=== PATIENT | male | born 1935 | race Caucasian/White ===

== ENCOUNTER 2020-12-12 00:59 | Day surgery (SDC) | payer MEDICARE, SELFPAY ==
[2020-11-26 12:46] VITALS: BMI 23.3
--- NOTE | 2020-12-12 07:19 | WPDANESEPPF ---
Anes - Initial Pre Proc Eval Procedure: Operation Date: 12/12/20 08:45 Proposed Procedures p Screening Colonoscopy - Kasi Schaefer MD Date/Time: 12/12/20 07:19 Surgeon: Kasi Schaefer MD Pre Op Diagnosis: hx of colon polyps Patient Data Age: 85 Gender: M Height: 1.83 m Weight: 78 kg Allergies Allergy/AdvReac Type Severity Reaction Status Date / Time azithromycin Allergy Mild Diarrhea Verified 11/14/20 08:44 Home Medications Medication Instructions Recorded Confirmed Type ramipril 10 mg capsule 10 mg PO DAILY #90 cap 06/20/20 12/12/20 Rx tamsulosin 0.4 mg capsule 0.4 mg PO DAILY #90 cap 08/27/20 12/12/20 Rx diltiazem HCl 240 mg 240 mg PO DAILY #90 cap 12/03/20 12/12/20 Rx capsule,extended release 24 hr Patient hx anesthesia problems: none Family hx anesthesia problems: none PMFSH Past Medical History Medical History (Updated 12/12/20 @ 07:58 by Kasi Schaefer MD) Esophageal reflux disease Essential (primary) hypertension Pure hypercholesterolemia Family History Family History Sibling Patient's sister is in good health Other Family history of gastrointestinal disorder Social History Social History Smoking status: Never smoker Second hand tobacco smoke exposure: No Alcohol intake: never Substance use: never Living arrangements: with family Spiritual care concerns: No Anes - Eval Final PreProcedure Day of Procedure 12/12/20 07:19 Patient weight: normal Heart: regular rate and rhythm Lungs: clear to auscultation and normal air movement Airway: Mallampati scale class II Neurological: alert and oriented Last oral intake: >/= 8 hours ASA classification: II Emergent: no Anesthetic plan: proceed Anesthesia type and monitoring: general GIVS Informed Consent: The patient's anesthetic plan and its attendant risks and benefits were discussed with the patient/family/POA. Questions were solicited and answers provided to the satisfaction of the patient/family/POA.
[2020-12-12 07:36] VITALS: BP 160/89; PULSE 91; RESP 18; TEMP 36.7; O2SAT 99; BMI 22.4
--- NOTE | 2020-12-12 07:56 | P.CONGI_ITS ---
Assessment and Plan Assessment and plan (1) History of colon polyps: Code(s): Z86.010 - Personal history of colonic polyps Status: Acute Assessment and Plan: Patient has a history of colon polyps most recently 2012. Plan is for surveillance colonoscopy at this time. High-fiber diet advised. GI Consult Note Consult date/time: 12/12/20 07:56 HPI: Reddy Ordoñez Sr. is a 85 year old male Presents for follow-up surveillance colonoscopy. Patient has a history of colon polyps in the past. Most recent colonoscopy 2012. Patient states that his current weight appetite bowel movements are normal. Patient denies abdominal pain. He has had no blood in his stools. Family history is noncontributory. Patient presents today for a colonoscopy. Review of Systems Review of Systems: All systems reviewed & are unremarkable except as noted in HPI and below PMFSH Past Medical History Medical History (Updated 12/12/20 @ 07:58 by Kasi Schaefer MD) Esophageal reflux disease Essential (primary) hypertension Pure hypercholesterolemia Family History Family History Sibling Patient's sister is in good health Other Family history of gastrointestinal disorder Social History Social History Smoking status: Never smoker Second hand tobacco smoke exposure: No Alcohol intake: never Substance use: never Living arrangements: with family Spiritual care concerns: No Meds Home Medications and Allergies Home Medications Medication Instructions Recorded Confirmed Type ramipril 10 mg capsule 10 mg PO DAILY #90 cap 06/20/20 12/12/20 Rx tamsulosin 0.4 mg capsule 0.4 mg PO DAILY #90 cap 08/27/20 12/12/20 Rx diltiazem HCl 240 mg 240 mg PO DAILY #90 cap 12/03/20 12/12/20 Rx capsule,extended release 24 hr Allergies Allergy/AdvReac Type Severity Reaction Status Date / Time azithromycin Allergy Mild Diarrhea Verified 11/14/20 08:44 Vital Signs Vital Signs - 24 hr 12/12/20 07:36 Temperature 98.0 F Pulse Rate 91 Respiratory Rate 18 Blood Pressure 160/89 H Pulse Oximetry 99 Exam Narrative: Exam Narrative: Physical exam reveals patient to be alert. Vital signs stable. HEENT exam is unremarkable. Patient is anicteric. Lungs are clear to auscultation and percussion. Heart is without murmur or extra sounds. Abdominal exam bowel sounds are present soft nontender with no organomegaly. Di gital external rectal exam is normal.
[2020-12-12] MEDS: LACTATED RINGERS 1,000 ML 150 ML IV CONT (08:02)
[2020-12-12 08:56] VITALS: BP 121/49; PULSE 90; RESP 18; O2SAT 98
[2020-12-12 09:06] VITALS: BP 122/71; PULSE 88; RESP 19; O2SAT 97
[2020-12-12 09:16] VITALS: BP 135/80; PULSE 80; RESP 13; O2SAT 97
== END 2020-12-12 09:27 | disposition home or self-care (01) ==
PROVIDERS: PCP Internal Medicine; Visit Provider Internal Medicine Gastroenterology
PROC: 0DJD8ZZ Inspection of Lower Intestinal Tract, Via Natural or Artificial Opening Endoscopic (ICD-10-PCS; CPT 45378; principal; 2020-12-12 08:45)
DX: Z12.11 Encounter for screening for malignant neoplasm of colon (principal); D12.5 Benign neoplasm of sigmoid colon; D12.2 Benign neoplasm of ascending colon; K64.8 Other hemorrhoids; K57.30 Diverticulosis of large intestine without perforation or abscess without bleeding; I10 Essential (primary) hypertension; E78.00 Pure hypercholesterolemia, unspecified; K21.9 Gastro-esophageal reflux disease without esophagitis
CPT/HCPCS: 45385; 88305; J2704; J7120

== ENCOUNTER 2021-02-03 10:04 | Emergency (ER) | payer MEDICARE, SELFPAY ==
--- NOTE | ~2021-02-03 | XR_ITS ---
EXAMINATION: XR ankle RT min 3V DATE: 02/03/2021 10:31 INDICATION: Lateral right ankle pain post trauma 2 days prior TECHNIQUE: Anteroposterior, oblique, mortise, and lateral views of the right ankle were obtained. COMPARISON: None. FINDINGS: There is a nondisplaced oblique fracture through the distal fibula with a fracture plane exiting medi ally at the level of the tibiotalar joint consistent with Mensah type B injury pattern. No other fract ure identified. Specifically the medial and posterior malleoli as well as the talar dome are intact. Ankle mortise remains congruent. Soft tissue swelling overlying the lateral malleolus. Additional m ild soft tissue swelling at the medial side of the hindfoot. Moderate-sized right ankle joint effusio n. IMPRESSION: 1. Nondisplaced oblique fracture of the distal left fibula. 2. Moderate-sized right ankle joint effusion. Reviewed, dictated and finalized at location A.
[2021-02-03 10:17] VITALS: BP 154/68; PULSE 84; RESP 18; TEMP 37.1; O2SAT 99
--- NOTE | 2021-02-03 10:45 | ED.LOWEXIN ---
HPI - Extremity Injury (Lower) General Chief Complaint: Extremity Injury, Lower Stated Complaint: Rt ankle pain History of Present Illness HPI Narrative: This is a 85 year old male who two days ago got his left ankle caught in between to pieces of metal and fell backwards patient states that he has a superfical abrasion and his foot is still swollen. Patient informs me that it hurts when he ambulates on the leg but he is still able with a lot of pain Related Data Allergies Allergy/AdvReac Type Severity Reaction Status Date / Time azithromycin Allergy Mild Diarrhea Verified 02/03/21 10:22 Review of Systems Review of Systems: CONSTITUTIONAL: Denies fever, chills, or sweats. EYES: Denies visual changes, redness, or discharge. ENT: Denies rhinorrhea, congestion, sore throat, or otalgia. CARDIOVASCULAR:Denies chest pain, palpitations, or edema. RESPIRATORY: Denies cough or dyspnea. GASTROINTESTINAL: Denies abdominal pain, nausea, vomiting, or diarrhea. GENITOURINARY: Denies dysuria or hematuria. SKIN:[Denies rash or itching. MUSCULOSKELETAL:Denies back pain, joint pain, or myalgia. left foot and ankle pain and swelling NEUROLOGIC: Denies headache, numbness, or weakness. PSYCHIATRIC:Denies anxiety or depression [facility] Past Medical History Medical History (Updated 02/03/21 @ 11:20 by Israel Becerra NP) Esophageal reflux disease Essential (primary) hypertension Pure hypercholesterolemia Family History Family History Sibling Patient's sister is in good health Other Family history of gastrointestinal disorder Social History Social History Smoking status: Never smoker Second hand tobacco smoke exposure: No Alcohol intake: never Substance use: never Spiritual care concerns: No Comments At time as signature, I have reviewed and agree with nursing past medical, social, surgical and family history. Please see nursing chart for further information. There is no relevant family history pertinent to the presenting complaint. Exam Narrative: GENERAL:Well-appearing, well-nourished, and in no acute distress. HEAD:Normocephalic, atraumatic. EYES: PERRLA and EOMI. ENT: Nares clear, no rhinorrhea or epistaxis. Mucous membranes moist. NECK: Supple. CHEST: Clear to auscultation. No respiratory distress. HEART: Regular rate and rhythm. Normal peripheral pulses. ABDOMEN: Soft, nontender, nondistended, normal active bowel sounds. EXTREMITIES: decreased range of motion due to pain on the left leg . 2+ edema left foot with some bruising noted painful to palpation. Left out side of leg has a superficial laceration with serosanguineous drainage. SKIN: Warm, dry, no rash. NEURO: No focal deficits. Alert and oriented x3. Course [employer] Physician Supervision FINDINGS: There is a nondisplaced oblique fracture through the distal fibula with a fracture plane exiting medially at the level of the tibiotalar joint consistent with Mensah type B injury pattern. No other fracture identified. Specifically the medial and posterior malleoli as well as the talar dome are intact. Ankle mortise remains congruent. Soft tissue swelling overlying the lateral malleolus. Additional mild soft tissue swelling at the medial side of the hindfoot. Moderate-sized right ankle joint effusion. IMPRESSION: 1. Nondisplaced oblique fracture of the distal left fibula. 2. Moderate-sized right ankle joint effusion. Reviewed, dictated and finalized at location A. Dictated By: Kelby Man MD 02/03/21 1051 Vital Signs Vital signs: Vital Signs Temperature 98.8 F 02/03/21 10:17 Pulse Rate 84 02/03/21 10:17 Respiratory Rate 18 02/03/21 10:17 Blood Pressure 154/68 H 02/03/21 10:17 Pulse Oximetry 99
== END 2021-02-03 11:50 | disposition home or self-care (01) ==
PROVIDERS: Emergency Provider Nurse Practitioner Family; PCP Internal Medicine
DX: M25.461 Effusion, right knee (principal); S82.434A Nondisplaced oblique fracture of shaft of right fibula, initial encounter for closed fracture; W18.09XA Striking against other object with subsequent fall, initial encounter; I10 Essential (primary) hypertension
CPT/HCPCS: 29515; 73610; 99213; 99214; G0463

== ENCOUNTER 2021-02-12 12:51 | Outpatient (RCR) | payer MEDICARE, SELFPAY ==
[2021-02-12 13:00] VITALS: BMI 23.7
== END 2021-04-03 13:47 | disposition home or self-care (01) ==
LOC: ANHWOC 12:51
PROVIDERS: PCP Internal Medicine; Visit Provider Orthopaedic Surgery
DX: S90.511D Abrasion, right ankle, subsequent encounter (principal); S82.64XD Nondisplaced fracture of lateral malleolus of right fibula, subsequent encounter for closed fracture with routine healing
CPT/HCPCS: 99212; G0463

== ENCOUNTER 2021-03-04 10:04 | Outpatient (CLI) | payer MEDICARE, SELFPAY ==
--- NOTE | ~2021-03-04 | XR_ITS ---
XR ankle RT min 3V DATE: 03/04/2021 10:25 INDICATION: Nondisplaced fracture of lateral malleolus TECHNIQUE: 4 views COMPARISON: 02/03/2021 right ankle FINDINGS: There is a linear oblique virtually nondisplaced fracture of the distal fibular diametaphys is. The fracture line is less lucent compared to 02/03/2021 consistent with some interval healing. Medial malleolus and posterior malleolus appear intact. Ankle mortise is preserved. IMPRESSION: Healing nondisplaced distal fibular diametaphyseal fracture Reviewed, dictated and finalized at location A.
== END 2021-03-04 10:05 | disposition home or self-care (01) ==
PROVIDERS: PCP Internal Medicine; Visit Provider Physician Assistant Surgical
DX: S82.64XD Nondisplaced fracture of lateral malleolus of right fibula, subsequent encounter for closed fracture with routine healing (principal); X58.XXXD Exposure to other specified factors, subsequent encounter
CPT/HCPCS: 73610

== ENCOUNTER 2021-12-11 10:13 | Emergency (ER) | payer MEDICARE, SELFPAY ==
--- NOTE | 2021-12-11 10:19 | ED.URI ---
HPI - URI/Sore Throat General Chief Complaint: Upper Respiratory Infection Stated Complaint: cold symptoms Time Seen by Provider: 12/11/21 10:40 Source: patient and RN notes reviewed Mode of arrival: ambulatory Limitations: no limitations History of Present Illness HPI Narrative: 86-year-old male presents with concern for 4-day history of cough, nasal congestion, rhinorrhea. Reports symptoms were worse on Thursday and Thursday. He reports hot and cold flashes, dry cough, rhinorrhea, headache. Reports he has had COVID-vaccine +2 boosters. He denies any shortness of breath, fever. He reports he is been taking Tylenol MD elicited complaint: cough and rhinorrhea Related Data Allergies Allergy/AdvReac Type Severity Reaction Status Date / Time azithromycin Allergy Mild Diarrhea Verified 12/11/21 10:17 Review of Systems Review of Systems: CONSTITUTIONAL: Reports malaise, chills, sweats. Denies fever. EYES: Denies visual changes, redness, or discharge. ENT: Reports rhinorrhea, congestion. Denies sinus pain, otalgia and sore throat. CARDIOVASCULAR: Denies chest pain, palpitations, or edema. RESPIRATORY: Reports cough. Denies dyspnea. GASTROINTESTINAL: Denies abdominal pain, nausea, vomiting, diarrhea SKIN: Denies rash or itching. MUSCULOSKELETAL: Denies myalgia. NEUROLOGIC: Denies headache. All systems reviewed & are unremarkable except as noted in HPI and below PMFSH Past Medical History Medical History Esophageal reflux disease Essential (primary) hypertension Pure hypercholesterolemia Surgical History Surgical History Hx of cholecystectomy Previous back surgery Family History Family History Sibling Patient's sister is in good health Other Family history of gastrointestinal disorder Social History Social History Smoking status: Never smoker Second hand tobacco smoke exposure: No Alcohol intake: never Substance use: never Spiritual care concerns: No Comments At time of signature, agree with nursing past medical, surgical, social and family history. There is no relevant family history pertinent to the presenting complaint Exam Narrative: GENERAL: Nontoxic appearing and in no acute distress. HEAD: Normocephalic EYES: PERRLA, conjunctivae clear ENT: Nares clear, clear discharge. Mucous membranes moist. TM pearly mays with sharp light reflex bilaterally; no tragal tenderness. Oropharynx not erythematous without lesions. Tonsils not enlarged and without exudate, no drooling, no hoarseness, no trismus, uvula midline. NECK: Supple. No lymphadenopathy CHEST: Clear to auscultation, breath sounds equal. No wheezing, rhonchi, rales, or stridor. No respiratory distress, speaks in full sentences. HEART: Regular rate and rhythm. No murmur heard. SKIN: Warm, dry, no rash. NEURO: Alert and oriented x3. PSYCH: Normal mood and affect Course Course Emergency Course: Patient is aware of diagnosis, understands and agrees to treatment plan. Anticipatory guidance given. Patient agrees to follow-up as directed and is aware of reasons to seek care at the emergency department. Portions of this record may have been created with voice recognition software Level of Care: Express Care Visit Vital Signs Vital signs: Vital Signs Temperature 99.5 F 12/11/21 10:26 Pulse Rate 101 H 12/11/21 10:26 Respiratory Rate 18 12/11/21 10:26 Blood Pressure 136/65 12/11/21 10:26 Pulse Oximetry 98 12/11/21 10:26 Oxygen Delivery Room Air 12/11/21 10:26 Temperature 99.5 F 12/11/21 10:26 Pulse Rate 101 H 12/11/21 10:26 Respiratory Rate 18 12/11/21 10:26 Blood Pressure 136/65 12/11/21 10:26 Pulse Oximetry 98 12/11/21 10:26 Oxygen Delivery Room Air 12/11/21 10:26 Reviewed. MDM - URI/S
[2021-12-11 10:26] VITALS: BP 136/65; PULSE 101; RESP 18; TEMP 37.5; O2SAT 98
== END 2021-12-11 10:58 | disposition home or self-care (01) ==
PROVIDERS: Emergency Provider Nurse Practitioner; PCP Internal Medicine
DX: U07.1 COVID-19 (principal); K21.9 Gastro-esophageal reflux disease without esophagitis; I10 Essential (primary) hypertension; E78.00 Pure hypercholesterolemia, unspecified
CPT/HCPCS: 87426; 87804; 99213; C9803; G0463

== ENCOUNTER 2021-12-18 11:33 | Outpatient (CLI) | payer MEDICARE, SELFPAY ==
--- NOTE | ~2021-12-18 | XR_ITS ---
XR chest 2V DATE: 12/18/2021 11:50 INDICATION: Cough TECHNIQUE: PA and lateral views COMPARISON: 01/11/2016 PA and lateral chest FINDINGS: Normal heart size. Mild aortic calcification and unfolding. No hilar or mediastinal enlarge ment. No pulmonary infiltrate or consolidation, pleural effusion or pulmonary vascular congestion or pneumo thorax. Postoperative change of the abdomen. Degenerative change of the thoracic spine. Osteopenia. IMPRESSION: No active cardiopulmonary disease Reviewed, dictated and finalized at location B.
== END 2021-12-18 11:34 | disposition home or self-care (01) ==
PROVIDERS: PCP Internal Medicine; Visit Provider Internal Medicine
DX: R05.9 Cough, unspecified (principal); U07.1 COVID-19
CPT/HCPCS: 71046

== ENCOUNTER 2022-10-17 13:09 | Outpatient (CLI) | payer MEDICARE, SELFPAY | END 2022-10-17 13:10 | disposition home or self-care (01) | PROVIDERS: PCP Internal Medicine; Visit Provider Internal Medicine | DX: J02.9 Acute pharyngitis, unspecified (principal) | CPT/HCPCS: 87070 ==

== ENCOUNTER 2023-02-16 08:00 | Outpatient (NON) | payer MEDICARE, SELFPAY | END 2023-02-16 08:01 | disposition home or self-care (01) | LOC: ANHLAB 02-20 12:47 | PROVIDERS: PCP Internal Medicine; Visit Provider Nurse Practitioner | DX: C44.219 Basal cell carcinoma of skin of left ear and external auricular canal (principal) | CPT/HCPCS: 88305 ==

== ENCOUNTER 2023-02-28 08:09 | Emergency (ER) | payer MEDICARE, SELFPAY ==
--- NOTE | 2023-02-28 08:17 | ED.SKABFB ---
HPI - Skin/Abscess/Foreign Bdy General Chief complaint: Allergic Reaction Stated complaint: Insect Bite Time Seen by Provider: 02/28/23 08:26 Source: patient and RN notes reviewed Mode of arrival: ambulatory Limitations: no limitations History of Present Illness HPI narrative: 87-year-old male presents with concern for ground hornet stings. Reports yesterday at 1:00 a.m. he was raking leaves when he got stung by several ground hornets. Reports a sting to the left face, left elbow and right hand. Reports are swollen, warm, tender. He denies swollen lips, swollen tongue, trouble breathing. Denies vomiting or diarrhea. Reports he put hydrocortisone cream on the areas. MD complaint: insect bite/sting Related Data Home Medications Medication Instructions Recorded Confirmed amitriptyline 10 mg tablet 10 mg PO DIRECTED 02/28/23 02/28/23 Allergies Allergy/AdvReac Type Severity Reaction Status Date / Time azithromycin Allergy Mild Diarrhea Verified 02/28/23 08:25 Review of Systems Review of Systems: CONSTITUTIONAL: Denies malaise, chills, sweats, or fever. EYES: Denies redness, or discharge. ENT: Denies rhinorrhea, congestion, swollen lips, swollen tongue CARDIOVASCULAR: Denies chest pain, palpitations, or edema. RESPIRATORY: Denies cough or dyspnea. GASTROINTESTINAL: Denies abdominal pain, nausea, vomiting SKIN: Reports insect stings to the right hand, left elbow, left face MUSCULOSKELETAL: Denies joint pain or myalgia. NEUROLOGIC: Denies headache. All systems reviewed & are unremarkable except as noted in HPI and below PMFSH Past Medical History Medical History Esophageal reflux disease Essential (primary) hypertension Pure hypercholesterolemia Surgical History Surgical History Hx of cholecystectomy Previous back surgery Family History Family History Sibling Patient's sister is in good health Other Family history of gastrointestinal disorder Social History Social History Smoking status: Never smoker Second hand tobacco smoke exposure: No Alcohol intake: never Substance use: never Lack of Transportation: No Lack of Food: Never True Current Housing: I Have Housing Concerned About Future Housing: No Difficulty Paying Gas/Electric Bills: No Difficulty Paying for Meds: No Currently Unemployed: No Education: High School Diploma/GED Difficulty w/ Childcare or Family Care: No Living arrangements: with family Spiritual care concerns: No Comments At time of signature, agree with nursing past medical, surgical, social and family history. There is no relevant family history pertinent to the presenting complaint Exam Narrative: GENERAL: Well-appearing, well-nourished, and in no acute distress. HEAD: Normocephalic, atraumatic. EYES: PERRLA, conjunctivae clear, and EOMI. ENT: Mucous membranes moist. Oropharynx without edema, erythema or lesions. NECK: Supple. No lymphadenopathy CHEST: Clear to auscultation. No respiratory distress. HEART: Regular rate and rhythm. SKIN: Warm, dry. Erythema, edema, warmth with mild induration noted to the left elbow extending into the left forearm, right dorsal hand. Mild erythema noted to the left cheek. NEURO: Alert and oriented x3. PSYCH: Normal mood and affect Course Course Emergency Course: Patient is aware of diagnosis, understands and agrees to treatment plan. Anticipatory guidance given. Patient agrees to follow-up as directed and is aware of reasons to seek care at the emergency department. Portions of this record may have been created with voice recognition software Level of Care: Express Care Visit Vital Signs Vital signs: Reviewed. MDM - Skin/Abscess/Foreign Bdy MDM Narrative Medical de
[2023-02-28 08:19] VITALS: BP 165/77; PULSE 87; RESP 16; TEMP 36.9; O2SAT 100
== END 2023-02-28 08:39 | disposition home or self-care (01) ==
PROVIDERS: Emergency Provider Nurse Practitioner; PCP Internal Medicine
DX: T63.451A Toxic effect of venom of hornets, accidental (unintentional), initial encounter (principal); I10 Essential (primary) hypertension; Z79.899 Other long term (current) drug therapy
CPT/HCPCS: 99213; G0463

== ENCOUNTER 2023-04-06 09:00 | Outpatient (NON) | payer MEDICARE, SELFPAY | END 2023-04-06 09:01 | disposition home or self-care (01) | LOC: ANHLAB 14:06 | PROVIDERS: PCP Internal Medicine; Visit Provider Nurse Practitioner | DX: C44.91 Basal cell carcinoma of skin, unspecified (principal) | CPT/HCPCS: 88305; 88331 ==

== ENCOUNTER 2023-10-06 08:45 | Outpatient (CLI) | payer MEDICARE, SELFPAY | END 2023-10-06 08:46 | disposition home or self-care (01) | LOC: ANHAUDIO 08:46 | PROVIDERS: PCP Internal Medicine; Visit Provider Otolaryngology | DX: H90.3 Sensorineural hearing loss, bilateral (principal) | CPT/HCPCS: 92557; 92567 ==

== ENCOUNTER 2023-12-20 16:56 | Emergency (ER) | payer MEDICARE, SELFPAY ==
--- NOTE | ~2023-12-20 | XR_ITS ---
EXAMINATION: XR chest 2V DATE: 12/20/2023 17:20 INDICATION: Cough TECHNIQUE: PA and lateral views of the chest were obtained. COMPARISON: Chest radiograph dated 12/18/2021 FINDINGS: Unchanged mild left apical pleural-parenchymal scarring. No other airspace opacities, pulmonary edema , pleural effusion or pneumothorax. The cardiomediastinal silhouette is normal. Chronic mild anterior wedging of a few mid thoracic vertebral bodies with severe spondylosis. Postoperative changes in the abdomen including likely ventral hernia repair. IMPRESSION: 1. No acute cardiopulmonary disease. Reviewed, dictated and finalized at location A.
[2023-12-20 17:03] VITALS: BP 152/65; PULSE 84; RESP 18; TEMP 37.2; O2SAT 99
--- NOTE | 2023-12-20 17:15 | ED.URI ---
HPI - URI/Sore Throat General Chief Complaint: Upper Respiratory Infection Stated Complaint: Chest and Head Congestion Time Seen by Provider: 12/20/23 16:57 Source: patient Mode of arrival: ambulatory Limitations: no limitations History of Present Illness HPI Narrative: 88-year-old male presents to [facility] with complaints of nonproductive cough, chest congestion, nasal congestion, body aches and sinus pressure for the past 10 days. Patient has been taking [id number] Tylenol with minimal relief. Patient reports intermittent shortness of breath but denies wheezing. Patient denies sick contacts. Patient denies recent travel. Patient is nonsmoker. MD elicited complaint: cough, rhinorrhea and nasal congestion Onset (ago): day(s) (10) Able to tolerate fluids by mouth: Yes Exacerbating factors: nothing Relieving factors: nothing Treatments prior to arrival: acetaminophen Related Data Allergies Allergy/AdvReac Type Severity Reaction Status Date / Time azithromycin AdvReac Mild Diarrhea Verified 12/20/23 16:59 Review of Systems Constitutional: Constitutional: Denies chills, Denies fatigue, Denies fever(s) and Denies weakness ENT: Denies vertigo, Denies dizziness, Denies epistaxis, Reports nasal congestion and Denies sore throat Cardiovascular: Cardiovascular: Denies chest pain Respiratory: Respiratory: Reports chest congestion, Reports cough, Reports dyspnea and Denies wheezing Gastrointestinal: Gastrointestinal: Denies diarrhea, Denies nausea and Denies vomiting Integumentary/Breasts: Skin/Breast: Denies erythema, Denies rash and Denies skin ulcer Neurologic: Denies dizziness, Denies syncope and Denies headache(s) [facility] Past Medical History Medical History Esophageal reflux disease Essential (primary) hypertension Pure hypercholesterolemia Surgical History Surgical History Hx of cholecystectomy Previous back surgery Family History Family History Sibling Patient's sister is in good health Other Family history of gastrointestinal disorder Social History Social History Smoking status: Never smoker Second hand tobacco smoke exposure: No Alcohol intake: never Substance use: never Lack of Transportation: No Lack of Food: Never True Current Housing: I Have Housing Concerned About Future Housing: No Difficulty Paying Gas/Electric Bills: No Difficulty Paying for Meds: No Currently Unemployed: No Education: High School Diploma/GED Difficulty w/ Childcare or Family Care: No Living arrangements: with family Spiritual care concerns: No Comments At time of signature, I agree with nursing past medical, surgical, social and family history. There is no relevant family history pertinent to the presenting complaint. Exam Const: General: healthy appearing and no acute distress Nutritional Appearance: well nourished Orientation/consciousness: patient oriented x3 Limitations: no limitations HENMT: Head: normal to inspection Ears: external ears normal and TM's normal bilaterally Face/Nose/Sinus: Normal external nose present Face and sinus: normal facial exam Mouth: Yes Normal oral and palatal mucosa present, Yes lip normal and Yes moist mucous membranes Throat: posterior oropharynx normal and uvula midline Other: Mild nasal congestion noted Eyes: Conjunctivae: conjunctivae normal Neck: Neck: normal visual inspection Resp: Effort & Inspection: normal respiratory effort, not labored, no retractions and not tachypneic Auscultation: no crackles, no rales, no rhonchi, no wheezes and diminished lung sounds on the left in the upper lung coughlin Cardio: Rate: regular rate Rhythm: regular rhythm Heart sounds: no murmurs Skin: General skin exam: normal color R
== END 2023-12-20 17:44 | disposition home or self-care (01) ==
PROVIDERS: Emergency Provider Nurse Practitioner Family; PCP Internal Medicine
DX: J01.10 Acute frontal sinusitis, unspecified (principal); K21.9 Gastro-esophageal reflux disease without esophagitis; I10 Essential (primary) hypertension; E78.00 Pure hypercholesterolemia, unspecified
CPT/HCPCS: 71046; 99213; G0463

== ENCOUNTER 2024-05-18 13:06 | Emergency (ER) | payer MEDICARE, SELFPAY ==
--- NOTE | ~2024-05-18 | XR_ITS ---
EXAMINATION: XR chest 2V DATE: 05/18/2024 13:28 INDICATION: Cough TECHNIQUE: PA and lateral views of the chest were obtained. COMPARISON: Chest radiograph dated 12/20/2023 FINDINGS: Mild biapical pleural-parenchymal scarring. Small calcified nodule projecting over the lateral right upper lung zone consistent with old granulomatous disease. No new airspace opacities, pulmonary edema , pleural effusion or pneumothorax. Heart size is normal. Cholecystectomy clips in right upper quadra nt. Additional metallic coils project over the upper anterior abdominal wall consistent with prior ve ntral hernia repair. Severe thoracic spondylosis. IMPRESSION: 1. No acute cardiopulmonary disease. Reviewed, dictated and finalized at location A. RICT SALES COORDINATOR
--- NOTE | 2024-05-18 13:15 | ED_ITS ---
HPI - URI/Sore Throat General Chief Complaint: Upper Respiratory Infection Stated Complaint: sob and chest cold Time Seen by Provider: 05/18/24 13:15 History of Present Illness HPI Narrative: patient presents with 2 week history of sinus pain and congestion. He reports that he is becoming concerned because he feels as though symptoms are moving into the chest over the past several days. He reports that he has a cough that is productive of clear sputum. Has had some shortness of breath with exertion, pain with deep inspiration. He denies any injury or trauma. He is in no distress at this time. He has been using nasal spray to treat his symptoms with minimal relief. Related Data Allergies Allergy/AdvReac Type Severity Reaction Status Date / Time azithromycin AdvReac Intermediate Diarrhea Verified 05/18/24 13:10 Review of Systems Review of Systems: All systems reviewed & are unremarkable except as noted in HPI and below Constitutional: Constitutional: Reports no additional constitutional complaints ENT: Reports system reviewed and no additional complaints, except as documented, Reports nasal congestion, Reports nasal discharge, Reports sinus pain and Reports sinus pressure Cardiovascular: Cardiovascular: Reports no additional cardiovascular complaints Respiratory: Respiratory: Reports no additional respiratory complaints, Reports chest congestion, Reports cough, Reports excessive phlegm production, Reports pain on inspiration and Reports dyspnea on exertion Gastrointestinal: Gastrointestinal: Reports no additional gastrointestinal complaints PMFSH Past Medical History Medical History Esophageal reflux disease Essential (primary) hypertension Pure hypercholesterolemia Surgical History Surgical History Hx of cholecystectomy Previous back surgery Family History Family History Sibling Patient's sister is in good health Other Family history of gastrointestinal disorder Social History Social History Smoking status: Never smoker Second hand tobacco smoke exposure: No Alcohol intake: never Substance use: never Lack of Transportation: No Lack of Food: Never True Current Housing: I Have Housing Concerned About Future Housing: No Difficulty Paying Gas/Electric Bills: No Difficulty Paying for Meds: No Currently Unemployed: No Education: High School Diploma/GED Difficulty w/ Childcare or Family Care: No Living arrangements: with family Spiritual care concerns: No Exam Const: General: cooperative, no acute distress, alert and awake Orientation/consciousness: oriented to person, oriented to place and oriented to time HENMT: Head: normal to inspection Ears: TM abnormal with fluid behind the TM bilateral Face/Nose/Sinus: sinus tenderness Mouth: Yes moist mucous membranes Throat: posterior oropharynx abnormal erythema Resp: Effort & Inspection: normal respiratory effort and able to speak in complete sentences Auscultation: clear to auscultation bilaterally, no crackles, no rales, no rhonchi and no wheezes Cardio: Palpation: normal PMI Rate: regular rate Rhythm: regular rhythm Heart sounds: S1 normal heart sound present and S2 normal heart sound present Neuro: General: oriented to person, oriented to place and oriented to time Cranial nerves: Yes CN's II-XII intact bilaterally Psych: Appearance: grossly normal Thought process: Normal thought process present Insight: Good insight present (Psych) Judgement: Good judgement present (Psych) Course Course Level of Care: Express [facility] Visit MDM - URI/Sore Throat MDM Narrative Medical decision making narrative: History and exam consistent with sinusitis. Treat as same. Patient is nontoxic appearing patient is stable for discharge home on p.o. antibiotic therapy. Negative chest x-ray. Discharge instructions reviewed with patient, as well as provided in writing per nursing staff. The instructions also include specific and strict return/GO TO THE ER as well as f/u information. All questions have been answered, and the patient deny any further questions with discharge and discharge plan. Some parts of this dictation were generated by voice recognition software and may contain typographical and/or grammatical inaccuracies. Differential Diagnosis Differential diagnosis: Likely upper respiratory infection, otitis media, sinusitis, viral infection, bronchitis and pharyngitis Medical Records Attestation: I reviewed the patient's medical records. Imaging Data Attestation: I personally reviewed and interpreted this imaging study as follows: My impression: no acute finding Radiologist's impression: [address] [address] XRay Report Signed Patient: Reddy Ordoñez Sr. : 1935 MR#: [id number] Age: 88 Acct:[id number] Loc: [facility] ADM Date: 05/18/24Attending Dr: Ordering Physician: Krupa Frankel FNP Date of Service: 05/18/24 Procedure(s): XR chest 2V Accession Number(s): [id number] cc: Krupa Frankel FNP; Saw Bah DO~ EXAMINATION: XR chest 2V DATE: 05/18/2024 13:28 INDICATION: Cough TECHNIQUE: PA and lateral views of the chest were obtained. COMPARISON: Chest radiograph dated 12/20/2023 FINDINGS: Mild biapical pleural-parenchymal scarring. Small calcified nodule projecting over the lateral right upper lung zone consistent with old granulomatous disease. No new airspace opacities, pulmonary edema, pleural effusion or pneumothorax. Heart size is normal. Cholecystectomy clips in right upper quadrant. Additional metallic coils project over the upper anterior abdominal wall consistent with prior ventral hernia repair. Severe thoracic spondylosis. IMPRESSION: 1. No acute cardiopulmonary disease. Reviewed, dictated and finalized at location A. LY NURSE Dictated By: Kelby Man MD 05/18/24 1339 Signed By: <Electronically signed by Kelby Man MD in OV> 05/18/24 1342 Discharge Plan Discharge Clinical Impression: Sinusitis Qualifiers: Sinusitis location: frontal Chronicity: acute Recurrence: not specified as recurrent Qualified Code(s): J01.10 - Acute frontal sinusitis, unspecified Patient Disposition: Home, Self-Care Condition: Stable Instructions: Antibiotic Form, Sinusitis (ED) Additional Instructions: take medications as prescribed. Follow with primary care provider. Emergency department for new or worsening symptoms Patient Language: Vietnamese Prescriptions: New amoxicillin-pot clavulanate 875-125 mg tablet 1 tablet PO Q12H Qty: 20 0RF No Action fluticasone propionate [Flonase Allergy Relief] 50 mcg/actuation spray,suspension 2 spray intranasal DAILY Qty: 16 3RF Rx Instructions: administer into each nostril ramipril [Altace] 10 mg capsule 10 mg PO DAILY Qty: 90 3RF tamsulosin [Flomax] 0.4 mg capsule 0.4 mg PO DAILY Qty: 90 2RF diltiazem HCl [Cartia XT] 240 mg capsule,extended release 24hr 240 mg PO DAILY Qty: 90 1RF azelastine 137 mcg (0.1 %) spray,non-aerosol 1 - 2 spray intranasal Q12H Qty: 30 4RF Rx Instructions: administer into each nostril. Aim back/up/out Follow-up/Referrals: Saw Bah DO [Primary Care Provider] - 2 Weeks Time of Disposition: 13:50
[2024-05-18 13:17] VITALS: BP 136/63; PULSE 89; RESP 18; TEMP 36.7; O2SAT 100
== END 2024-05-18 13:53 | disposition home or self-care (01) ==
PROVIDERS: Emergency Provider Nurse Practitioner Family; PCP Internal Medicine
DX: J01.10 Acute frontal sinusitis, unspecified (principal); K21.9 Gastro-esophageal reflux disease without esophagitis; I10 Essential (primary) hypertension; E78.00 Pure hypercholesterolemia, unspecified
CPT/HCPCS: 71046; 99213; G0463

== ENCOUNTER 2024-06-23 09:19 | Emergency (ER) | payer MEDICARE, SELFPAY ==
[2024-06-23 09:28] VITALS: BP 149/64; PULSE 84; RESP 18; TEMP 36.7; O2SAT 100
--- NOTE | 2024-06-23 09:42 | ED.URI ---
HPI - URI/Sore Throat General Chief Complaint: Upper Respiratory Infection Stated Complaint: Chest Congestion Time Seen by Provider: 06/23/24 09:42 Source: patient Mode of arrival: ambulatory Limitations: no limitations History of Present Illness HPI Narrative: 88-year-old male presents with complaint of postnasal drainage, nasal congestion, cough for the past 2 weeks. Reports cough and postnasal drainage worse over the last 5 days with sore throats in the morning. Not taking any kpht-sio-jgziyiw medications to treat symptoms. states that he is supposed to take Flonase but has not been using it. Does not take fypg-yut-[id number] antihistamines cause in the past has cause issues with his prostate and he has been unable to urinate. Afebrile. No chest pain or shortness of breath. All systems reviewed and negative except as noted above. Related Data Allergies Allergy/AdvReac Type Severity Reaction Status Date / Time azithromycin AdvReac Intermediate Diarrhea Verified 06/23/24 09:36 amoxicillin (From Augmentin) AdvReac Mild Other Verified 06/23/24 09:36 clavulanic acid (From AdvReac Mild Other Verified 06/23/24 09:36 Augmentin) Review of Systems Review of Systems: CONSTITUTIONAL: Denies fever, chills, or sweats. EYES: Denies visual changes, redness, or discharge. ENT: Reports rhinorrhea, congestion, postnasal drainage, sore throat. Denies otalgia. CARDIOVASCULAR: Denies chest pain, palpitations, or edema. RESPIRATORY: reports cough. Denies dyspnea. GASTROINTESTINAL: Denies abdominal pain, nausea, vomiting, or diarrhea. GENITOURINARY: Denies dysuria or hematuria. SKIN: Denies rash or itching. MUSCULOSKELETAL: Denies back pain, joint pain, or myalgia. NEUROLOGIC: Denies headache, numbness, or weakness. PSYCHIATRIC: Denies anxiety or depression. All other systems reviewed are negative, except as documented in HPI. [facility] Past Medical History Medical History Esophageal reflux disease Essential (primary) hypertension Pure hypercholesterolemia Surgical History Surgical History Hx of cholecystectomy Previous back surgery Family History Family History Sibling Patient's sister is in good health Other Family history of gastrointestinal disorder Social History Social History Smoking status: Never smoker Second hand tobacco smoke exposure: No Alcohol intake: never Substance use: never Lack of Transportation: No Lack of Food: Never True Current Housing: I Have Housing Concerned About Future Housing: No Difficulty Paying Gas/Electric Bills: No Difficulty Paying for Meds: No Currently Unemployed: No Education: High School Diploma/GED Difficulty w/ Childcare or Family Care: No Living arrangements: with family Spiritual care concerns: No Comments At time of signature, agree with nursing past medical, surgical, social and family history. There is no relevant family history pertinent to the presenting complaint. Exam Narrative: GENERAL: This is a well-nourished, well-developed patient, in no apparent distress. HEAD: normocephalic, atraumatic. EYES: PERRL. Sclera clear/white. Vision is grossly intact. EARS: External ears normal, auditory canals clear and without drainage, TMs normal without perforation. Hearing grossly intact. NOSE: External nose normal with Mild nasal congestion clear nasal drainage THROAT: Mucous membranes moist, postnasal drainage with mild erythema. No swelling or exudates. NECK: Neck supple, non-tender without lymphadenopathy, masses or thyromegaly. CARDIOVASCULAR: Regular rate and rhythm without murmurs, gallops, or rubs. RESPIRATORY: Clear to auscultation. Breath sounds equal bilaterally. No wheezes, rales, or rhonchi. SKIN: warm, Dry, intact with no suspicious lesions or rash, good texture and turgor. NEURO: awake, alert, and oriented to person, place and time. There were no obvious focal neurologic abnormalities. EXTREMITIES: No joint tenderness, effusion, or edema noted. Course Course Level of Care: Express Care Visit Vital Signs Vital signs: Vital Signs Temperature 36.7 C 06/23/24 09:28 Pulse Rate 84 06/23/24 09:28 Respiratory Rate 18 06/23/24 09:28 Blood Pressure 149/64 H 06/23/24 09:28 Pulse Oximetry 100 06/23/24 09:28 Oxygen Delivery Room Air 06/23/24 09:28 Temperature 36.7 C 06/23/24 09:28 Pulse Rate 84 06/23/24 09:28 Respiratory Rate 18 06/23/24 09:28 Blood Pressure 149/64 H 06/23/24 09:28 Pulse Oximetry 100 06/23/24 09:28 Oxygen Delivery Room Air 06/23/24 09:28 reviewed MDM - URI/Sore Throat MDM Narrative Medical decision making narrative: negative COVID and influenza test. Patient is well-appearing, nontoxic. Will treat with antibiotic due to duration of symptoms and exam findings. Recommend patient start [id number] Flonase. Patient is aware of diagnosis, understands and agrees to treatment plan. Anticipatory guidance given. Patient agrees to follow-up as directed and is aware of reasons to seek care at the emergency department. Portions of this record may have been created with voice recognition software Differential Diagnosis Differential diagnosis: Likely upper respiratory infection, sinusitis, viral infection and influenza Discharge Plan Discharge Clinical Impression: Acute bacterial sinusitis Patient Disposition: Home, Self-Care Condition: Stable Instructions: Antibiotic Form, Sinusitis (ED) Additional Instructions: Your COVID and influenza test were negative today. Take antibiotic as prescribed until gone. Continue using Flonase as directed on packaging. Take Tylenol every 6-8 hours as needed for pain and fever. Drink at least 64 oz of water a day. Follow-up with your primary care physician if symptoms are not improving. Patient Language: Prydeinig Prescriptions: New amoxicillin 875 mg tablet 875 mg PO Q12H 10 Days Qty: 20 0RF No Action diltiazem HCl [Cartia XT] 240 mg capsule,extended release 24hr 240 mg PO DAILY Qty: 90 2RF tamsulosin [Flomax] 0.4 mg capsule 0.4 mg PO DAILY Qty: 90 2RF ramipril [Altace] 10 mg capsule 10 mg PO DAILY Qty: 90 3RF Follow-up/Referrals: UNKNOWN,DOCTOR [Primary Care Provider] - Time of Disposition: 10:05
--- OUTSIDE RECORDS SUMMARY | 2024-06-24 04:07 | XMS_ITS | Clinical Summary ---
Author Organization [facility] Address [address] [place] [address]. [address] [address] Care Team Providers Care Email Manager Name Role Phone Unavailable Primary Care Provider Unavailabl e Social History Tobacco Use Types Packs/Day Years Used Date Smoking Tobacco: Never Assessed Sex and Gender Information Value Date Recorded Sex Assigned at Not on file Legal Sex Male 7:06 PM CDT Gender Identity Not on file Sexual Orientation Not on file Plan of Treatment Health Maintenance Due Date Last Done Comments DTaP, Tdap and Td Vaccines ( 1 - Tdap) 10/14/1954 Zoster Vaccines (1 of 2) 1986 Pneumococcal Vaccine: 65+ Ye ars (1 of 1 - PCV) 2001 RSV Immunization or 60+ Years (1 - 1-dose 75+ series) 10/14/2011 COVID-19 Vaccine (2023-2 5 season) 2024 Influenza Adult (#1) 2024 Meningococcal Vaccine Aged Out No marianne beatriz eligible based on patient's age to complete this topic RSV Immunizations Under 20 Months Aged Out No longer eligible based on patient's age to complete this topic
== END 2024-06-23 10:09 | disposition home or self-care (01) ==
PROVIDERS: Emergency Provider Nurse Practitioner Family
DX: J01.90 Acute sinusitis, unspecified (principal); Z20.822 Contact with and (suspected) exposure to COVID-19; I10 Essential (primary) hypertension; E78.00 Pure hypercholesterolemia, unspecified; K21.9 Gastro-esophageal reflux disease without esophagitis
CPT/HCPCS: 87635; 87804; 99213; G0463

== ENCOUNTER 2024-10-15 08:15 | Emergency (ER) | payer MEDICARE, SELFPAY ==
--- NOTE | ~2024-10-15 | XR_ITS ---
EXAMINATION: XR wrist LT min 3V DATE: 10/15/2024 08:49 INDICATION: Decreased range of motion with swelling and erythema at the radial side of the left wrist TECHNIQUE: Posteroanterior, ulnar deviation, oblique, and lateral views of the left wrist were obtain ed. COMPARISON: none FINDINGS: Widening of the scapholunate interval with associated dorsal intercalated segment instability (DISI) with increased scapholunate and lunocapitate angles consistent with scapholunate ligament tear/insuff iciency. 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 Additional mild osteoarthritis of the distal radioulnar, midcarpal, triscap he, first carpal metacarpal and first metacarpophalangeal joints. No fracture. No cortical erosions. Mild soft tissue swelling dorsal to the carpus. IMPRESSION: 1. Constellation of findings consistent with chronic scapholunate ligament tear/insufficiency with se condary dorsal intercalated segment instability (DISI) and scapholunate advanced collapse (SLAC) wris t including advanced osteoarthritis at the radial scaphoid articulation. Reviewed, dictated and finalized at location A. IMPRESSION: 1. Constellation of findings consistent with chronic scapholunate ligament tear /insufficiency with secondary dorsal intercalated segment instability (DISI) an d scapholunate advanced collapse (SLAC) wrist including advanced osteoarthritis at the radial scaphoid articulation.
--- OUTSIDE RECORDS SUMMARY | 2024-10-15 08:18 | XMS_ITS | Clinical Summary ---
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
--- NOTE | 2024-10-15 08:19 | ED_ITS ---
HPI - General Adult General Chief complaint: Extremity Problem,Nontraumatic Stated complaint: Hurt his L wrist Time Seen by Provider: 10/15/24 08:18 Source: patient Mode of arrival: ambulatory Limitations: no limitations History of Present Illness HPI narrative: 89-year-old male patient presents to the [facility] with complaints of left wrist pain. Patient states he was doing yd work on all day and using several different type of tools including a weed whacker and a hoe. Patient states he does not remember any specific injury to the wrist that day. Patient states he went to bed just fine woke up in the middle the night with left wrist pain. Patient states he has taken 1 Tylenol 500 mg and iced it but not very often. Patient states it is swollen and he is having difficulty bending the left wrist. Denies fevers, body aches or chills. Denies chest pain or shortness of breath. Related Data Home Medications Medication Instructions Recorded Confirmed Last Taken Type azelastine 137 mcg (0.1 %) nasal intranasal 10/15/24 Unknown History spray triamcinolone acetonide 0.1 % applic topical 10/15/24 Unknown History topical cream Allergies Allergy/AdvReac Type Severity Reaction Status Date / Time azithromycin AdvReac Intermediate Diarrhea Verified 10/15/24 08:23 amoxicillin (From Augmentin) AdvReac Mild Other Verified 10/15/24 08:23 clavulanic acid (From AdvReac Mild Other Verified 10/15/24 08:23 Augmentin) Review of Systems Review of Systems: CONSTITUTIONAL: Denies fever, chills, or sweats. EYES: Denies visual changes, redness, or discharge. ENT: Denies rhinorrhea, congestion, sore throat, or otalgia. CARDIOVASCULAR: Denies chest pain, palpitations, or edema. RESPIRATORY: Denies cough or dyspnea. GASTROINTESTINAL: Denies abdominal pain, nausea, vomiting, or diarrhea. GENITOURINARY: Denies dysuria or hematuria. SKIN: Denies rash or itching. MUSCULOSKELETAL: Denies back pain, joint pain, or myalgia. Positive left wrist pain x2 days NEUROLOGIC: Denies headache, numbness, or weakness. PSYCHIATRIC: Denies anxiety or depression. FORMERLY [facility], 1928–1983 Past Medical History Medical History BMI 22.0-22.9, adult Other fatigue Essential (primary) hypertension SOB (shortness of breath) Skin neoplasm Skin cancer screening Schwannoma Mass of soft tissue of left upper extremity History of basal cell carcinoma (BCC) Dietary counseling and surveillance (04/09/15) Diarrhea Basal cell carcinoma of upper back Atypical chest pain AK (actinic keratosis) Acute rhinosinusitis Esophageal reflux disease Essential (primary) hypertension Pure hypercholesterolemia Surgical History Surgical History Hx of cholecystectomy Previous back surgery Family History Family History Sibling Patient's sister is in good health Heart disease Father Mother Hypertension Other Family history of gastrointestinal disorder Social History Social History Smoking status: Never smoker Second hand tobacco smoke exposure: No Alcohol intake: never Substance use: never Substance use type: does not use Do You Feel Safe in your Home?: Yes Lack of Transportation: No Lack of Food: Never True Current Housing: I Have Housing Concerned About Future Housing: No Difficulty Paying Gas/Electric Bills: No Difficulty Paying for Meds: No Currently Unemployed: No Education: High School Diploma/GED Difficulty w/ Childcare or Family Care: No Living arrangements: with family Occupation/Education: retired 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 There is no relevant family history pertinent to the presenting complaint. Exam Narrative: GENERAL: Well-appearing, well-nourished, and in no acute distress. HEAD: Normocephalic, atraumatic. EYES: PERRLA and EOMI. ENT: Nares clear, no rhinorrhea or epistaxis. Mucous membranes moist. NECK: Supple. No lymphadenopathy CHEST: Clear to auscultation. No respiratory distress. HEART: Regular rate and rhythm. No murmur heard. Normal peripheral pulses. ABDOMEN: Soft, nontender, nondistended, normal active bowel sounds. EXTREMITIES: the L wrist is without obvious asymmetry or deformity when compared to the R wrist. No surface trauma, open wounds, or obvious deformity. there is swelling and erythema with slight warmth present to the radial side of the left wrist. No bony crepitus. focal area of TTP To the radial side of the left wrist. No scaphoid fullness or tenderness to direct palpation or axial load. Decreased and unable to flex the left wrist., Complaints of pain with ulnar/radial deviation. Motor/sensory function of ulnar, radial, median nerves intact. Ulnar and radial pulses intact. unable to perform Phalen's/Tinel's sign. positive Reinier test. SKIN: Warm, dry, no rash. NEURO: No focal deficits. Alert and oriented x3. Course Course Level of Care: Express Care Visit Reevaluation(s) Reevaluation #1: follow-up with patient after x-ray and resulted. Notified him that he has significant amount of osteoarthritis which also might have causes injury and un stabilization to the wrist whenever he was working in the yd . Discussed with him that there is a mention of a possible scaphoid ligament tear but it appears to be chronic either way I think he needs to follow up with the orthopedic surgeon for further evaluation and treatment. Discussed with patient I will give him some steroids to help with the inflammation and the pain he can also take Tylenol in it is very important that he does lots of ice. We will wrap the wrist with an Jos wrap and he needs to call the orthopedic surgeon on Thursday for follow-up. Patient verbalized understanding denies any other questions or concerns at this time. Date: 10/15/24 Time: 09:15 Vital Signs Vital signs: Vital Signs Temperature 36.8 C 10/15/24 08:29 Pulse Rate 89 10/15/24 08:29 Respiratory Rate 18 10/15/24 08:29 Blood Pressure 156/73 H 10/15/24 08:29 Pulse Oximetry 100 10/15/24 08:29 Oxygen Delivery Room Air 10/15/24 08:29 Temperature 36.8 C 10/15/24 08:29 Pulse Rate 89 10/15/24 08:29 Respiratory Rate 18 10/15/24 08:29 Blood Pressure 156/73 H 10/15/24 08:29 Pulse Oximetry 100 10/15/24 08:29 Oxygen Delivery Room Air 10/15/24 08:29 Vital signs reviewed. The patient has been informed that they may have pre-hypertension or Hypertension based on a BP reading in the department. I recommend that the patient call the primary care provider listed on their discharge instructions or a physician of their choice this week to arrange follow up for further evaluation of possible pre-hypertension or Hypertension Medical Decision Making MDM Narrative Medical decision making narrative: plan care for patient is to x-ray the right wrist to assess for any acute injury. Discussed with him I do believe this is most likely a tendon injury in which he will need to follow up with his primary doctor or we can refer him to an orthopedic surgeon for further evaluation. I will reassess him was x-ray has resulted. Differential Diagnosis Differential Diagnosis: Differential diagnosis: Paronychia, felon, cellulitis, flexor tenosynovitis, mallet finger, boutonniere deformity, flexor tendons, dislocated digits, unstable fracture, unstable ligamentous injury, closed space infection, carpal tunnel syndrome, contusion. Vital Signs Vital Signs: Vital Signs Temperature 36.8 C 10/15/24 08:29 Pulse Rate 89 10/15/24 08:29 Respiratory Rate 18 10/15/24 08:29 Blood Pressure 156/73 H 10/15/24 08:29 Pulse Oximetry 100 10/15/24 08:29 Oxygen Delivery Room Air 10/15/24 08:29 Temperature 36.8 C 10/15/24 08:29 Pulse Rate 89 10/15/24 08:29 Respiratory Rate 18 10/15/24 08:29 Blood Pressure 156/73 H 10/15/24 08:29 Pulse Oximetry 100 10/15/24 08:29 Oxygen Delivery Room Air 10/15/24 08:29 Imaging Data Radiologist's impression: [address] [address] XRay Report Signed Patient: Reddy Ordoñez Sr. : 1935 MR#: [id number] Age: 89 Acct:[id number] Loc: [facility] ADM Date: 10/15/24Attending Dr: Ordering Physician: Batsheva Dale APRN Date of Service: 10/15/24 Procedure(s): XR wrist LT min 3V Accession Number(s): [id number] cc: Saw Bah DO; Batsheva Dale APRN~ EXAMINATION: XR wrist LT min 3V DATE: 10/15/2024 08:49 INDICATION: Decreased range of motion with swelling and erythema at the radial side of the left wrist TECHNIQUE: Posteroanterior, ulnar deviation, oblique, and lateral views of the left wrist were obtained. COMPARISON: none FINDINGS: Widening of the scapholunate interval with associated dorsal intercalated segment instability (DISI) with increased scapholunate and lunocapitate angles consistent with scapholunate ligament tear/insufficiency. 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 Additional mild osteoarthritis of the distal radioulnar, midcarpal, triscaphe, first carpal metacarpal and first metacarpophalangeal joints. No fracture. No cortical erosions. Mild soft tissue swelling dorsal to the carpus. IMPRESSION: 1. 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 Reviewed, dictated and finalized at location A. 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 Tylenol for lesser pain Ibuprofen regularly for the next 2-3 days for the inflammation Please call the orthopedic doctor to today for further follow-up and assessment Follow up with your primary care provider if the condition is not improving within 1 week or sooner if the Condition worsens with numbness, tingling, decrease sensation with weakness to seek ER. Patient Language: Nigerian Prescriptions: New prednisone 10 mg tablets,dose pack See Rx Instructions .ROUTE .COMPLEX Qty: 48 0RF Rx Instructions: 50 mg x 3 days, 40 mg x 3 days, 30 mg x 3 days, 20 mg x 3 days, 10 mg x 3 days No Action triamcinolone acetonide 0.1 % cream TOPICAL azelastine 137 mcg (0.1 %) spray,non-aerosol INTRANASAL diltiazem HCl [Cartia XT] 240 mg capsule,extended release 24hr 240 mg PO DAILY Qty: 90 2RF tamsulosin [Flomax] 0.4 mg capsule 0.4 mg PO DAILY Qty: 90 2RF ramipril [Altace] 10 mg capsule 10 mg PO DAILY Qty: 90 3RF Follow-up/Referrals: Saw Bah DO [Primary Care Provider] - Gregg Tomlinson MD [Physician] - Time of Disposition: 09:13
[2024-10-15 08:29] VITALS: BP 156/73; PULSE 89; RESP 18; TEMP 36.8; O2SAT 100
== END 2024-10-15 09:12 | disposition home or self-care (01) ==
PROVIDERS: Emergency Provider Nurse Practitioner Family; PCP Internal Medicine
DX: M19.032 Primary osteoarthritis, left wrist (principal); S63.512A Sprain of carpal joint of left wrist, initial encounter; X58.XXXA Exposure to other specified factors, initial encounter; I10 Essential (primary) hypertension; E78.00 Pure hypercholesterolemia, unspecified; K21.9 Gastro-esophageal reflux disease without esophagitis; Z85.828 Personal history of other malignant neoplasm of skin
CPT/HCPCS: 73110; 99213; G0463

== ENCOUNTER 2025-01-19 10:23 | Outpatient (CLI) | payer MEDICARE, SELFPAY ==
--- NOTE | ~2025-01-19 | XR_ITS ---
XR lumbar spine 2-3V 01/19/2025 10:49 Indication: Low back pain Procedure: 3 views lumbar spine Comparison: 11/26/2021 Findings: There is disc narrowing and endplate hypertrophy at all lumbar levels. There is dextroscoliosis. There is severe multilevel facet hypertrophy. No acute fracture or traumatic malalignment. There are changes of ventral hernia repair in the right upper abdomen. Sacral foramen are symmetric. Impression: 1: Severe lumbar spondylosis with dextroscoliosis. Reviewed, dictated and finalized at location O. Impression: 1: Severe lumbar spondylosis with dextroscoliosis.
--- OUTSIDE RECORDS SUMMARY | 2025-01-19 11:04 | XMS_ITS | Clinical Summary ---
Author Organization [facility] Address [facility] [place] [address] Care Team Providers Care Readiness Paraprofessional Name Role Phone Unavailable Primary Care Provider [...]
== END 2025-01-19 10:24 | disposition home or self-care (01) ==
PROVIDERS: PCP Internal Medicine; Visit Provider Internal Medicine
DX: M47.816 Spondylosis without myelopathy or radiculopathy, lumbar region (principal); M41.86 Other forms of scoliosis, lumbar region
CPT/HCPCS: 72100

== ENCOUNTER 2025-02-22 14:06 | Emergency (ER) | payer MEDICARE, SELFPAY ==
--- NOTE | ~2025-02-22 | XR_ITS ---
EXAMINATION: XR chest 2V, 02/22/2025 14:30 CDT HISTORY: cough COMPARISON: No comparisons available. Technique: 2 views obtained. Findings: The lungs are clear, no effusion. No pneumothorax. Heart is normal size. Mediastinal and hilar contours are within normal limits. Bony thorax no acute abnormality. Impression: No acute cardiopulmonary abnormality. Reviewed, dictated and finalized at location A. Impression: No acute cardiopulmonary abnormality.
--- OUTSIDE RECORDS SUMMARY | 2025-02-22 14:09 | XMS_ITS | Clinical Summary ---
Author Organization [facility] Address [facility] [place] [address] Care Team Providers Care Analysis Internship Name Role Phone Unavailable Primary Care Provider [...] series) 10/14/2011 COVID-19 Vaccine (2023-2 5 season) 2025 Meningococcal B Vaccine Aged Out No l onger eligible based on patient's age to complete this topic Meningococcal Vaccine Aged Out No marianne beatriz eligible based on patient's age to complete this topic RSV Immunizations Under 20 Months Aged Out No longer eligible based on patient's age to complete this topic
[2025-02-22 14:13] VITALS: BP 138/49; PULSE 77; RESP 18; TEMP 36.7; O2SAT 100
--- NOTE | 2025-02-22 14:17 | ED_ITS ---
HPI - URI/Sore Throat General Chief Complaint: Upper Respiratory Infection Stated Complaint: chills/trouble breathing Time Seen by Provider: 02/22/25 14:18 Source: patient and RN notes reviewed Mode of arrival: ambulatory Limitations: no limitations History of Present Illness HPI Narrative: 89-year-old male presents with concern for one-week history of sinus congestion, drainage, cough, chills, shortness of breath. He reports history of sinusitis, chronic sinus infections. He denies history of problems breathing. His gave him 3 doses of amoxicillin. MD elicited complaint: cough and nasal congestion Related Data Allergies Allergy/AdvReac Type Severity Reaction Status Date / Time azithromycin AdvReac Intermediate Diarrhea Verified 02/22/25 14:08 amoxicillin (From Augmentin) AdvReac Mild Other Verified 02/22/25 14:08 clavulanic acid (From AdvReac Mild Other Verified 02/22/25 14:08 Augmentin) Review of Systems Review of Systems: CONSTITUTIONAL: Reports malaise, chills. Denies sweats or fever. EYES: Denies visual changes, redness, or discharge. ENT: Reports rhinorrhea, congestion, sinus pain. Denies otalgia and sore throat. CARDIOVASCULAR: Denies chest pain, palpitations, or edema. RESPIRATORY: Reports cough, dyspnea. GASTROINTESTINAL: Denies abdominal pain, nausea, vomiting, diarrhea SKIN: Denies rash or itching. MUSCULOSKELETAL: Denies myalgia. NEUROLOGIC: Denies headache. All systems reviewed & are unremarkable except as noted in HPI and below PMFSH Past Medical History Medical History BMI 22.0-22.9, adult Other fatigue Essential (primary) hypertension SOB (shortness of breath) Skin neoplasm Skin cancer screening Schwannoma Mass of soft tissue of left upper extremity History of basal cell carcinoma (BCC) Dietary counseling and surveillance (04/09/15) Diarrhea Basal cell carcinoma of upper back Atypical chest pain AK (actinic keratosis) Acute rhinosinusitis Esophageal reflux disease Essential (primary) hypertension Pure hypercholesterolemia Surgical History Surgical History Hx of cholecystectomy Previous back surgery Family History Family History Sibling Patient's sister is in good health Heart disease Father Mother Hypertension Other Family history of gastrointestinal disorder Social History Social History Smoking status: Never smoker Second hand tobacco smoke exposure: No Alcohol intake: never Substance use: never Substance use type: does not use Do You Feel Safe in your Home?: Yes Lack of Transportation: No Lack of Food: Never True Current Housing: I Have Housing Concerned About Future Housing: No Difficulty Paying Gas/Electric Bills: No Difficulty Paying for Meds: No Currently Unemployed: No Education: High School Diploma/GED Difficulty w/ Childcare or Family Care: No Living arrangements: with family Occupation/Education: retired 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 There is no relevant family history pertinent to the presenting complaint Exam Narrative: GENERAL: Well-appearing, well-nourished, and in no acute distress. HEAD: Normocephalic EYES: PERRLA, conjunctivae clear ENT: Nares clear, turbinates edematous and erythematous. Mucous membranes moist. TM pearly mays with dull light reflex bilaterally; no tragal tenderness. Oropharynx not erythematous without lesions. Tonsils not enlarged and without exudate, no drooling, no hoarseness, no trismus, uvula midline. NECK: Supple. No lymphadenopathy CHEST: Clear to auscultation, breath sounds equal. No wheezing, rhonchi, rales, or stridor. No respiratory distress, speaks in full sentences. HEART: Regular rate and rhythm. No murmur heard. SKIN: Warm, dry, no rash. NEURO: Alert and oriented x3. PSYCH: Normal mood and affect Course Course Emergency Course: Patient is aware of diagnosis, understands and agrees to treatment plan. Anticipatory guidance given. Patient agrees to follow-up as directed and is aware of reasons to seek care at the emergency department. Portions of this record may have been created with voice recognition software Level of Care: Express Care Visit Vital Signs Vital signs: Vital Signs Temperature 98.1 F 02/22/25 14:13 Pulse Rate 77 02/22/25 14:13 Respiratory Rate 18 02/22/25 14:13 Blood Pressure 138/49 L 02/22/25 14:13 Pulse Oximetry 100 02/22/25 14:13 Oxygen Delivery Room Air 02/22/25 14:13 Temperature 98.1 F 02/22/25 14:13 Pulse Rate 77 02/22/25 14:13 Respiratory Rate 18 02/22/25 14:13 Blood Pressure 138/49 L 02/22/25 14:13 Pulse Oximetry 100 02/22/25 14:13 Oxygen Delivery Room Air 02/22/25 14:13 Reviewed. MDM - URI/Sore Throat MDM Narrative Medical decision making narrative: Differential diagnosis considered: Suarez virus, strep pharyngitis, allergic rhinitis, upper respiratory tract infection, sinusitis, rhinosinusitis, nasopharyngitis. viral pharyngitis, otitis media, otitis externa, pneumonia, bronchitis, viral cough syndrome, viral syndrome, and influenza. Exam findings show no acute concerns or changes; patient is non-toxic appearing and is in no distress. Patient is appropriate for outpatient treatment and follow-up. Lab Data Attestation: I reviewed the patient's lab results. Imaging Data Radiologist's impression: HISTORY: cough COMPARISON: No comparisons available. Technique: 2 views obtained. Findings: The lungs are clear, no effusion. No pneumothorax. Heart is normal size. Mediastinal and hilar contours are within normal limits. Bony thorax no acute abnormality. Impression: No acute cardiopulmonary abnormality. Critical Care Time Critical Care Time Critical Care Time: No Discharge Plan Discharge Clinical Impression: Chronic sinusitis Patient Disposition: Home Condition: Stable Instructions: Antibiotic Form, Sinusitis (ED) Additional Instructions: 1) Please follow-up with your primary care doctor in the next 1-2 days. 2) If you have any worsening of symptoms or any other urgent concerns please go to the ER. 3) Please take medications as prescribed and continue taking your home medications as usual. 4) Please read and follow information included in discharge instructions. Patient Language: Frisian Prescriptions: New doxycycline monohydrate 100 mg tablet 100 mg PO BID 7 Days Qty: 14 0RF No Action ramipril [Altace] 10 mg capsule 10 mg PO DAILY Qty: 90 3RF tamsulosin [Flomax] 0.4 mg capsule 0.4 mg PO DAILY Qty: 90 2RF diltiazem HCl [Cartia XT] 240 mg capsule,extended release 24hr 240 mg PO DAILY Qty: 90 2RF Follow-up/Referrals: Saw Bah DO [Primary Care Provider, Internal Medicine] Time of Disposition: 14:48
[2025-02-22 14:37] LABS: EDCOVIDSCREEN Negative (Negative); EDINFLUASCREEN Negative (Negative); EDINFLUBSCREEN Negative (Negative)
== END 2025-02-22 14:49 | disposition home or self-care (01) ==
PROVIDERS: Emergency Provider Nurse Practitioner; PCP Internal Medicine
DX: J32.9 Chronic sinusitis, unspecified (principal); Z20.822 Contact with and (suspected) exposure to COVID-19; I10 Essential (primary) hypertension; E78.00 Pure hypercholesterolemia, unspecified; K21.9 Gastro-esophageal reflux disease without esophagitis; Z85.828 Personal history of other malignant neoplasm of skin
CPT/HCPCS: 71046; 87426; 87804; 99213; G0463

== ENCOUNTER 2025-02-22 16:57 | Emergency (ER) | payer MEDICARE, SELFPAY ==
[2025-02-22] VITALS (8 sets, daily range): BP systolic 120–152; BP diastolic 64–93; PULSE 73–90; RESP 14–17; TEMP 36.8; O2SAT 98–99
--- NOTE | ~2025-02-22 | CT_ITS ---
EXAMINATION: CT brain & sinus wo con DATE: 02/22/2025 18:33 INDICATION: Dizziness. History of sinus problems. TECHNIQUE: Computed tomography (CT) of the brain and sinuses was performed without intravenous contrast. The dose-length product was 756.67 mGy-cm. Automated exposure control and iterative reconstruction technique were employed. COMPARISON: CT dated 03/09/2008 FINDINGS: Mild generalized atrophy. Chronic right lacunar infarction. There is intracranial atherosclerosis. No acute infarction, hemorrhage, mass or mass effect. There is mucosal thickening of the right maxillary and sphenoid sinuses. Nasal septal deviation. Right ostiomeatal unit is patent. Left ostiomeatal unit is patent. No air-fluid levels. No mucoperiosteal reaction. Mastoids are pneumatized. IMPRESSION: 1. Moderate sinus disease. 2: No acute intracranial abnormality. 3: Chronic right lacunar infarction. Reviewed, dictated and finalized at location O.
--- OUTSIDE RECORDS SUMMARY | 2025-02-22 16:59 | XMS_ITS | Clinical Summary ---
Author Organization [facility] Address [facility] [place] [address] Care Team Providers Care Software Systems Architect Name Role Phone Unavailable Primary Care Provider [...]
--- NOTE | 2025-02-22 18:16 | ECG_ITS ---
Test Date: 2025-02-22 18:50:44 Measurements Intervals [place] Rate: 79 P: 62 CO: 155 QRS: 63 QRSD: 92 T: 61 QT: 391 QTc: 451 Interpretive Statements SINUS RHYTHM WITH MARKED SINUS ARRHYTHMIA No previous ECG available for comparison Electronically Signed On 02-23-2025 06:39:04 CDT by Rafa Houser M.D.
--- NOTE | 2025-02-22 18:26 | ED_ITS ---
HPI - Dizziness General Chief Complaint: Dizziness Stated Complaint: chills, dizzy Time Seen by Provider: 02/22/25 17:50 History of Present Illness HPI Narrative: Patient is an 89-year-old male who presents to the ER with a 1 week history of chills and lightheadedness. He reports I am not dizzy, just lightheaded from time to time. Patient denies any nausea or vomiting. He also endorses congestion due to seasonal allergies. Patient reports he went to urgent care earlier today and they advised him to come to the ER for evaluation. He reports his COVID and flu swabs were negative at urgent care. Patient denies any visual changes, shortness of breath, chest pain, or acute back pain. He endorses a history of chronic back pain, BPH and high blood pressure. Related Data Allergies Allergy/AdvReac Type Severity Reaction Status Date / Time azithromycin AdvReac Intermediate Diarrhea Verified 02/22/25 17:57 amoxicillin (From Augmentin) AdvReac Mild Other Verified 02/22/25 17:00 clavulanic acid (From AdvReac Mild Other Verified 02/22/25 17:00 Augmentin) Review of Systems 2 Review of Systems: All systems reviewed & are unremarkable except as noted in HPI and below PMFSH Past Medical History Medical History BMI 22.0-22.9, adult Other fatigue Essential (primary) hypertension SOB (shortness of breath) Skin neoplasm Skin cancer screening Schwannoma Mass of soft tissue of left upper extremity History of basal cell carcinoma (BCC) Dietary counseling and surveillance (04/09/15) Diarrhea Basal cell carcinoma of upper back Atypical chest pain AK (actinic keratosis) Acute rhinosinusitis Esophageal reflux disease Essential (primary) hypertension Pure hypercholesterolemia Surgical History Surgical History Hx of cholecystectomy Previous back surgery Family History Family History Sibling Patient's sister is in good health Heart disease Father Mother Hypertension Other Family history of gastrointestinal disorder Social History Social History Smoking status: Never smoker Second hand tobacco smoke exposure: No Alcohol intake: never Substance use: never Substance use type: does not use Do You Feel Safe in your Home?: Yes Lack of Transportation: No Lack of Food: Never True Current Housing: I Have Housing Concerned About Future Housing: No Difficulty Paying Gas/Electric Bills: No Difficulty Paying for Meds: No Currently Unemployed: No Education: High School Diploma/GED Difficulty w/ Childcare or Family Care: No Living arrangements: with family Occupation/Education: retired 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 HEAD: Normocephalic, atraumatic. NECK: Supple. No adenopathy, no masses. RESPIRATORY: Airway patent, respirations nonlabored. Clear to auscultation bilaterally, no rales, rhonchi, wheezing. CARDIOVASCULAR: Regular rate and rhythm without murmurs, rubs, or gallops. Peripheral pulses 2+ and equal bilaterally. ABDOMINAL: Soft, nontender, nondistended, no hepatosplenomegaly. Normoactive BS. MUSCULOSKELETAL: Moves all extremities. Strength/ROM intact without gross deformities. SKIN: Warm, dry, normal color. No rashes. NEURO: A&O X3. Speech clear. Cranial nerves II-XII intact. No ataxic movements. PSYCHIATRIC: Appropriate mood and affect. Normal interaction. Course Vital Signs Vital signs: Vital Signs Temperature 36.8 C 02/22/25 17:02 Pulse Rate 90 02/22/25 17:02 Respiratory Rate 16 02/22/25 17:02 Blood Pressure 143/64 H 02/22/25 17:02 Pulse Oximetry 99 02/22/25 17:02 Temperature 36.8 C 02/22/25 17:02 Pulse Rate 76 02/22/25 21:32 Respiratory Rate 14 02/22/25 21:32 Blood Pressure 123/87 02/22/25 21:32 Pulse Oximetry 98 02/22/25 21:32 MDM - Dizziness MDM Narrative Medical decision making narrative: Patient is an 89-year-old male who presents to the ER with a 1 week history of chills and lightheadedness. He reports I am not dizzy, just lightheaded from time to time. Patient denies any nausea or vomiting. He also endorses congestion due to seasonal allergies. Patient reports he went to urgent care earlier today and they advised him to come to the ER for evaluation. He reports his COVID and flu swabs were negative at urgent care. Patient denies any visual changes, shortness of breath, chest pain, or acute back pain. He endorses a history of chronic back pain, BPH and high blood pressure Labs Ordered: CBC, CMP, lactic acid, magnesium, proBNP, troponin, PTT, INR Imaging Ordered: Chest x-ray, CT brain and sinus Medications Ordered: Solu-Medrol 125 mg IV Diagnosis: Sinusitis, intermittent lightheadedness Consults: ENT, Dr. Ritchie, already established outpatient Patient Education/Shared MDM: Results of lab work and imaging shared with patient. He reports I feel good upon time of the reexamination. Nursing staff walked patient around the ER and he was asymptomatic. Patient strongly advised to maintain hydration status upon discharge and follow-up with his ear nose and throat doctor as planned. He will be discharged home with a prescription for Flonase and a Medrol Dosepak. Strict return precautions provided. Patient verbalized understanding and is in agreement with plan. Vital signs stable at time of discharge. All questions answered. Differential Diagnosis Differential diagnosis: Likely benign paroxysmal positional vertigo and cerebrovascular accident Lab Data Attestation: I reviewed the patient's lab results. 02/22/25 18:58 02/22/25 18:58 Labs: Lab Results 02/22/25 02/22/25 Range/Units 18:58 19:15 WBC 5.7 (4.5-10.0) K/mm3 RBC 4.21 L (4.6-6.20) M/mm3 Hgb 12.4 L (14.0-18.0) g/dL Hct 38.0 L (42.0-52.0) % MCV 90.3 (80-100) fl MCH 29.5 (26-34) pg MCHC 32.6 (32-36) g/dl RDW 13.0 (11.5-14.5) % Plt Count 282 (150-375) k/mm3 MPV 10.3 (7.4-10.4) fl Immature Gran % (Auto) 0.3 (0-0.5) % Neut % (Auto) 64.0 (45.5-73.1) % Lymph % (Auto) 21.8 (18.3-44.2) % [place] % (Auto) 10.1 H (2.6-8.5) % Eos % (Auto) 2.8 (0-4.4) % Baso % (Auto) 1.0 (0.2-1.2) % Lymph # (Auto) 1.25 (0.9-3.2) K/mm3 [place] # (Auto) 0.6 (0.1-0.6) K/mm3 Eos # (Auto) 0.2 (0-0.3) K/mm3 Baso # (Auto) 0.1 (0.0-0.1) K/mm3 Abs Immat Gran (auto) 0.02 (0.00-0.031) K/mm3 Absolute Neuts (auto) 3.7 (1.3-6.7) K/mm3 Absolute Nucleated RBC 0.000 (0.0-0.012) K/mm3 Nucleated RBC % 0.0 (0.0-0.2) % PT 13.2 (11.1-14.7) Seconds INR 1.0 APTT 30.4 (22.3-36.8) Seconds Sodium 139 (137-145) mmol/L Potassium 3.9 (3.4-5.0) mmol/L Chloride 104 (98-107) mmol/L Carbon Dioxide 25 (22-30) mmol/L Anion Gap 10 (4-12) mmol/L BUN 21 H (9-20) mg/dL Creatinine 0.70 (0.7-1.3) mg/dL Estim Creat Clear Calc 65 ml/min Estimated GFR > 60 (59 - ) Glucose 108 (65-110) mg/dL Lactic Acid 1.2 (0.7-2.0) mmol/L Calcium 9.0 (8.4-10.2) mg/dL Magnesium 1.9 (1.6-2.3) mg/dL Total Bilirubin 0.2 (0.2-1.3) mg/dL AST 24 (17-59) U/L ALT 16 (6-50) U/L Alkaline Phosphatase 70 (38-126) U/L Troponin I < 0.012 (0.000-0.034) ng/mL NT-Pro-B Natriuret Pep 108 H (19.9-100) pg/mL Total Protein 7.0 (6.3-8.2) g/dL Albumin 4.1 (3.5-5.1) g/dL Urine Color Yellow (Yellow) Urine Appearance Clear (Clear) Urine pH 6.0 (5.0-9.0) Ur Specific [place] 1.022 (1.001-1.035) Urine Protein Negative (Negative) mg/dL Urine Glucose (UA) Negative (Negative) mg/dL Urine Ketones Negative (Negative) mg/dL Ur Blood (Man) Negative (Negative) Urine Nitrate Negative (Negative) Urine Bilirubin Negative (Negative) Urine Urobilinogen 0.2 (<2.0) mg/dL Leukocyte Esterase Rfl Negative (Negative) MILI/UL Imaging Data Attestation: I personally reviewed and interpreted this imaging study as follows: Radiologist's impression: Impressions Head/Sinuses CT 02/22/25 18:38 IMPRESSION: 1. Moderate sinus disease. 2: No acute intracranial abnormality. 3: Chronic right lacunar infarction. Discharge Plan Discharge Clinical Impression: Chronic sinusitis, Intermittent lightheadedness Patient Disposition: Home Condition: Stable Instructions: Antibiotic Form, Lightheadedness (ED) Additional Instructions: Please return to the ER with any worsening symptoms. Follow-up with your ear nose and throat doctor as soon as possible. Take all medications as prescribed, including regularly scheduled medications. You may use steroids to help decrease the swelling in your sinuses. Please remember to drink lots of water. Patient Language: Sami Prescriptions: New methylprednisolone [Medrol (Andres)] 4 mg tablets,dose pack See Rx Instructions PO .COMPLEX Qty: 21 0RF Rx Instructions: for 6 days fluticasone propionate [Flonase Allergy Relief] 50 mcg/actuation spray,suspension 2 spray intranasal DAILY Qty: 16 0RF Rx Instructions: administer into each nostril No Action doxycycline monohydrate 100 mg tablet 100 mg PO BID 7 Days Qty: 14 0RF ramipril [Altace] 10 mg capsule 10 mg PO DAILY Qty: 90 3RF tamsulosin [Flomax] 0.4 mg capsule 0.4 mg PO DAILY Qty: 90 2RF diltiazem HCl [Cartia XT] 240 mg capsule,extended release 24hr 240 mg PO DAILY Qty: 90 2RF Follow-up/Referrals: Saw Bah DO [Primary Care Provider, Internal Medicine]
[2025-02-22 19:06] LABS: Hematocrit 38.0 % (42.0-52.0); Hemoglobin 12.4 g/dL (14.0-18.0); Immature Granulocyte Percent A 0.3 % (0-0.5); Lymphocytes Absolute Auto 1.25 K/mm3 (0.9-3.2); Mean Corpuscular HGB Conc 32.6 g/dl (32-36); Mean Corpuscular Hemoglobin 29.5 pg (26-34); Mean Corpuscular Volume 90.3 fl (80-100); Nucleated Red Blood Cells Absolute Auto 0.000 K/mm3 (0.0-0.012); Nucleated Red Blood Cells Perc 0.0 % (0.0-0.2); Platelet Count Result 282 k/mm3 (150-375); Red Blood Count 4.21 M/mm3 (4.6-6.20); White Blood Count 5.7 K/mm3 (4.5-10.0)
[2025-02-22 19:21] LABS: Add Urine Microscopic? NO; Appearance Urine Clear (Clear); Glucose Urine UA Negative (Negative); Leukocyte Esterase Ur Negative LEU/UL (Negative); Nitrate Urine Negative (Negative); Specific Grav Ur 1.022 (1.001-1.035)
[2025-02-22 19:26] LABS: INR 1.0; Prothrombin Time 13.2 Seconds (11.1-14.7)
[2025-02-22 19:27] LABS: Partial Thromboplastin Time 30.4 Seconds (22.3-36.8)
[2025-02-22 19:31] LABS: Alanine Aminotransferase 16 U/L (6-50); Albumin Level 4.1 g/dL (3.5-5.1); Alkaline Phosphatase 70 U/L (38-126); Anion Gap 10 mmol/L (4-12); Aspartate Amino Transferase 24 U/L (17-59); Bilirubin,Total 0.2 mg/dL (0.2-1.3); Blood Urea Nitrogen 21 mg/dL (9-20); Calcium 9.0 mg/dL (8.4-10.2); Carbon Dioxide 25 mmol/L (22-30); Chloride 104 mmol/L (98-107); Estimated CRCL calculation 65 ml/min; Estimated Glomerular Filt Rate > 60; Glucose 108 mg/dL (65-110); Magnesium 1.9 mg/dL (1.6-2.3); Potassium 3.9 mmol/L (3.4-5.0); Sodium 139 mmol/L (137-145); Total Protein 7.0 g/dL (6.3-8.2)
[2025-02-22 19:41] LABS: NT Pro B Type Natriuretic Pept 108 pg/mL (19.9-100); Troponin I < 0.012 ng/mL (0.000-0.034)
--- NOTE | 2025-02-22 20:46 | PC.NURSE ---
pt ambulated without assistance. pt has no complaints
== END 2025-02-22 21:54 | disposition home or self-care (01) ==
PROVIDERS: Emergency Provider Registered Nurse; PCP Internal Medicine
DX: J32.9 Chronic sinusitis, unspecified (principal); I10 Essential (primary) hypertension; E78.00 Pure hypercholesterolemia, unspecified; K21.9 Gastro-esophageal reflux disease without esophagitis; Z85.828 Personal history of other malignant neoplasm of skin; Z90.49 Acquired absence of other specified parts of digestive tract
CPT/HCPCS: 36415; 70450; 70486; 80053; 81003; 83605; 83735; 83880; 84484; 85025; 85610; 85730; 93005; 96374; 99284; J2919

== ENCOUNTER 2025-03-10 07:42 | Outpatient (CLI) | payer MEDICARE, SELFPAY ==
--- OUTSIDE RECORDS SUMMARY | 2025-03-10 07:45 | XMS_ITS | Clinical Summary ---
Author Organization [facility] Address [address] [place] [id number] Care Team Providers Care Report Manager Name Role Phone Unavailable Primary Care [...] 10/14/2011 COVID-19 Vaccine (2023-2 5 season) 2025 Influenza Adult (#1) 2025 Meningococcal B Vaccine Aged Out No l onger eligible based on patient's age to complete this topic Meningococcal Vaccine Aged Out No marianne beatriz eligible based on patient's age to complete this topic RSV Immunizations Under 20 Months Aged Out No longer eligible based on patient's age to complete this topic
== END 2025-03-10 07:43 | disposition home or self-care (01) ==
LOC: ANHAUDIO 07:43
PROVIDERS: PCP Internal Medicine; Visit Provider Otolaryngology
DX: H90.3 Sensorineural hearing loss, bilateral (principal)
CPT/HCPCS: 92557; 92567

== ENCOUNTER 2025-04-04 08:31 | Emergency (ER) | payer MEDICARE, SELFPAY ==
[2025-04-04 08:39] VITALS: BP 153/61; PULSE 87; RESP 18; TEMP 36.9; O2SAT 100
--- NOTE | 2025-04-04 09:24 | ED_ITS ---
HPI - General Adult General Chief complaint: Skin/Abscess/Foreign Body Stated complaint: Rash Source: patient Mode of arrival: ambulatory Limitations: no limitations History of Present Illness HPI narrative: Patient presents for evaluation of a painful rash to the left side of his chest and back. Symptom onset 3 days ago. He has a history of chickenpox and had shingles many years ago. He believes his current symptoms are consistent with those previously experience with shingles. He states that the rash is painful. He describes it as an ache and rates it 6/10 severity. He tried taking Tylenol for symptoms which seemed to help. Related Data Home Medications ?Medication ?Instructions ?Recorded ?Confirmed ?Last Taken ?Type ciprofloxacin HCl 500 mg tablet mg 04/04/25 Unknown H istory Allergies Allergy/AdvReac Type Severity Reaction Status Date / Time azithromycin AdvReac Intermediate Diarrhea Verified 04/04/25 08:33 clavulanic acid (From AdvReac Mild Other Verified 04/04/25 08:33 Augmentin) Review of Systems Review of Systems: CONSTITUTIONAL: Denies fever, chills, or sweats. EYES: Denies visual changes, redness, or discharge. ENT: Denies rhinorrhea, congestion, sore throat, or otalgia. CARDIOVASCULAR: Denies chest pain, palpitations, or edema. RESPIRATORY: Denies cough or dyspnea. GASTROINTESTINAL: Denies abdominal pain, nausea, vomiting, or diarrhea. GENITOURINARY: Denies dysuria or hematuria. SKIN: reports painful rash to the left side of his chest and back MUSCULOSKELETAL: Denies back pain, joint pain, or myalgia. NEUROLOGIC: Denies headache, numbness, dizziness, or weakness. PSYCHIATRIC: Denies anxiety or depression. [facility] Past Medical History Medical History (Reviewed 04/04/25 @ 09:30 by Saad Iniguez, CHIEF ENVIRONMENTAL COMMITMENT OFFICER, [employer]) BMI 22.0-22.9, adult Other fatigue Essential (primary) hypertension SOB (shortness of breath) Skin neoplasm Skin cancer screening Schwannoma Mass of soft tissue of left upper extremity History of basal cell carcinoma (BCC) Dietary counseling and surveillance (04/09/15) Diarrhea Basal cell carcinoma of upper back Atypical chest pain AK (actinic keratosis) Acute rhinosinusitis Esophageal reflux disease Essential (primary) hypertension Pure hypercholesterolemia Surgical History Surgical History Hx of cholecystectomy Previous back surgery Family History Family History Sibling Patient's sister is in good health Heart disease Father Mother Hypertension Other Family history of gastrointestinal disorder Social History Social History Smoking status: Never smoker Second hand tobacco smoke exposure: No Alcohol intake: never Substance use: never Substance use type: does not use Do You Feel Safe in your Home?: Yes Lack of Transportation: No Lack of Food: Never True Current Housing: I Have Housing Concerned About Future Housing: No Difficulty Paying Gas/Electric Bills: No Difficulty Paying for Meds: No Currently Unemployed: No Education: High School Diploma/GED Difficulty w/ Childcare or Family Care: No Living arrangements: with family Occupation/Education: retired 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 HEAD: Normocephalic, atraumatic. EYES: PERRLA and EOMI. ENT: Nares clear, no rhinorrhea or epistaxis. Mucous membranes moist. Oropharynx without tonsillar hypertrophy exudate or other lesions. Bilateral TMs pearly mays nonbulging NECK: Supple. No adenopathy or masses. No carotid bruits or JVD CHEST: Clear to auscultation. No respiratory distress. No wheezes rales or rhonchi HEART: Regular rate and rhythm. No murmur heard. Normal peripheral pulses. ABDOMEN: Soft, nontender, nondistended, normal active bowel sounds. EXTREMITIES: Normal range of motion. No edema. SKIN: there are clusters of vesicles noted to the left anterior and posterior chest wall NEURO: No focal deficits. Alert and oriented x3. PSYCH: Normal mood and affect. Course Course Emergency Course: this is an 89-year-old male who presented for evaluation of a painful rash to the left anterior posterior chest wall. His exam is consistent with shingles. Will start Valtrex. He will continue to take Tylenol for pain. Advised on transmission and interventions he can do to limit transmission to others. He should follow-up with his primary care provider and go to the emergency department for intractable pain or worsening symptoms. Patient in agreement with plan of care. Level of Care: Express Care Visit Vital Signs Vital signs: Vital Signs Temperature 36.9 C 04/04/25 08:39 Pulse Rate 87 04/04/25 08:39 Respiratory Rate 18 04/04/25 08:39 Blood Pressure 153/61 H 04/04/25 08:39 Pulse Oximetry 100 04/04/25 08:39 Oxygen Delivery Room Air 04/04/25 08:39 Temperature 36.9 C 04/04/25 08:39 Pulse Rate 87 04/04/25 08:39 Respiratory Rate 18 04/04/25 08:39 Blood Pressure 153/61 H 04/04/25 08:39 Pulse Oximetry 100 04/04/25 08:39 Oxygen Delivery Room Air 04/04/25 08:39 Medical Decision Making Vital Signs Vital Signs: Vital Signs Temperature 36.9 C 04/04/25 08:39 Pulse Rate 87 04/04/25 08:39 Respiratory Rate 18 04/04/25 08:39 Blood Pressure 153/61 H 04/04/25 08:39 Pulse Oximetry 100 04/04/25 08:39 Oxygen Delivery Room Air 04/04/25 08:39 Temperature 36.9 C 04/04/25 08:39 Pulse Rate 87 04/04/25 08:39 Respiratory Rate 18 04/04/25 08:39 Blood Pressure 153/61 H 04/04/25 08:39 Pulse Oximetry 100 04/04/25 08:39 Oxygen Delivery Room Air 04/04/25 08:39 Discharge Plan Discharge Clinical Impression: Herpes zoster Patient Disposition: Home Condition: Stable Instructions: Antibiotic Form, Shingles (ED) Patient Language: Egyptian Prescriptions: New valacyclovir [Valtrex] 1 gram tablet 1,000 mg PO TID Qty: 30 0RF No Action ciprofloxacin HCl 500 mg tablet fluticasone propionate [Flonase Allergy Relief] 50 mcg/actuation spray,suspension 2 spray intranasal BID Qty: 16 3RF Rx Instructions: administer into each nostril. Aim back/up/out ramipril [Altace] 10 mg capsule 10 mg PO DAILY Qty: 90 3RF tamsulosin [Flomax] 0.4 mg capsule 0.4 mg PO DAILY Qty: 90 2RF diltiazem HCl [Cartia XT] 240 mg capsule,extended release 24hr 240 mg PO DAILY Qty: 90 2RF Follow-up/Referrals: Saw Bah DO [Primary Care Provider, Internal Medicine] Time of Disposition: 09:11
== END 2025-04-04 09:12 | disposition home or self-care (01) ==
PROVIDERS: Emergency Provider Nurse Practitioner; PCP Internal Medicine
DX: B02.9 Zoster without complications (principal); I10 Essential (primary) hypertension
CPT/HCPCS: 99213; G0463

== ENCOUNTER 2025-05-17 14:19 | Emergency (ER) | payer MEDICARE, SELFPAY ==
--- NOTE | ~2025-05-17 | CT_ITS ---
CT abdomen pelvis w con INDICATION:abdominal pain and constipation . COMPARISON: None. TECHNIQUE: Axial images of the abdomen and pelvis were obtained following infusion of 100 mL Isovue 300. Dose optimization technique was utilized. FINDINGS: The lung bases are clear. The liver parenchyma is unremarkable. No intrahepatic mass or ductal dilatation is evident. The patient has had a cholecystectomy. The pancreas and spleen are normal in appearance. The adrenal glands are symmetric in size. The kidneys demonstrate symmetric uptake and excretion of contrast. Bilateral renal cysts are noted measuring up to 1.2 cm. There is no solid mass. There is no hydronephrosis. Stomach and small bowel loops unremarkable. There are no bowel obstruction or acute appendicitis. There is retained stool throughout the colon suggestive of mild constipation. There is colonic diverticulosis without evidence of acute diverticulitis. The bladder and rectum are normal. No free intraperitoneal fluid or air is evident. There is no significant retroperitoneal lymphadenopathy. The aorta, visceral vessels and renal arteries demonstrate normal caliber and patency. The lower thoracic and lumbar vertebrae are in normal alignment. IMPRESSION: No acute abnormality is noted in the abdomen and pelvis. Colonic diverticulosis without evidence of acute diverticulitis. Mild constipation. All CT scans at this facility are performed using low dose modulation techniques as appropriate to perform exam including the following: automated exposure control; use of iterative reconstruction technique; adjustment of the mA and/or kV according to patient size (this includes techniques or standardized protocols for targeted exams where dose is matched to indication/reason for exam). Reviewed, dictated and finalized at location S. IN CLEANER IMPRESSION: No acute abnormality is noted in the abdomen and pelvis. Colonic diverticulosis without evidence of acute diverticulitis. Mild constipation. All CT scans at this facility are performed using low dose modulation techniqu es as appropriate to perform exam including the following: automated exposure c ontrol; use of iterative reconstruction technique; adjustment of the mA and/or kV according to patient size (this includes techniques or standardized protocol s for targeted exams where dose is matched to indication/reason for exam).
[2025-05-17 14:20] VITALS: BP 154/53; PULSE 91; RESP 18; TEMP 36.4; O2SAT 99
[2025-05-17 17:03] VITALS: BP 153/79; PULSE 110; RESP 16; TEMP 36.6; O2SAT 100
--- OUTSIDE RECORDS SUMMARY | 2025-05-17 17:09 | XMS_ITS | Clinical Summary ---
Author Organization [facility] Address [address] [place] [id number] Care Team Providers Care Hub Lead Name Role Phone Unavailable Primary Care Provider [...] - 1-dose 75+ series) 10/14/2011 COVID-19 Vaccine (2024-2 6 season) 2025 Influenza Adult (#1) 2025 Hepatitis A Vaccines Aged Out No long er eligible based on patient's age to complete this topic Meningococcal B Vaccine Aged Out No l onger eligible based on patient's age to complete this topic Meningococcal Vaccine Aged Out No marianne beatriz eligible based on patient's age to complete this topic RSV Immunizations Under 20 Months Aged Out No longer eligible based on patient's age to complete this topic
--- NOTE | 2025-05-17 17:27 | ED.ABDPAIN ---
HPI - Abdominal Pain General Chief Complaint: Abdominal Pain <Duyen Inman APRN - Last Filed: 05/17/25 17:32> Stated Complaint: abd pain <Duyen Inman APRN - Last Filed: 05/17/25 17:32> Time Seen by Provider: 05/17/25 17:27 <Duyen Inman APRN - Last Filed: 05/17/25 17:32> Focused HPI: Patient is an 89-year-old male who presents to the ER with abdominal pain. He reports his symptoms started approximately 2 days ago after he drink a Boost. Patient also endorses ?rectal burning and constipation. He reports his last bowel movement was 2 days ago. Patient endorses a history of chronic back pain, BPH and high blood pressure. He reports he has experienced some acute back pain over the past couple of days. GENERAL: Well-appearing, well-nourished, and in no acute distress. HEAD: Normocephalic, atraumatic. CHEST: Clear to auscultation. ?No respiratory distress. HEART: Regular rate and rhythm.? NEURO: ?Alert and oriented x3. ABD: Mildly tender in bilateral lower quadrants. + BS Patient screened in triage and initial orders placed.? ?Additional care and disposition to be based upon?diagnostic testing and treatment. <Duyen Inman APRN - Last Filed: 05/17/25 17:32> History of Present Illness HPI narrative: Agree with above HPI. <RD Caldwell - Last Filed: 05/18/25 01:54> Related Data Home Medications: Home Medications ?Medication ?Instructions ?Recorded ?Confirmed ?Last Taken ?Type ciprofloxacin HCl 500 mg tablet mg 04/04/25 Unknown History <Duyen Inman APRN - Last Filed: 05/17/25 17:32> Allergies/Adverse Reactions: Allergies Allergy/AdvReac Type Severity Reaction Status Date / Time azithromycin AdvReac Intermediate Diarrhea Verified 04/04/25 08:33 clavulanic acid (From AdvReac Mild Other Verified 04/04/25 08:33 Augmentin) <Duyen Inman APRN - Last Filed: 05/17/25 17:32> Review of Systems Review of Systems: All systems reviewed & are unremarkable except as noted in HPI and below <RD Caldwell - Last Filed: 05/18/25 01:54> COUNTS INCLUDE 234 BEDS AT THE [facility] Past Medical History Medical History: Medical History BMI 22.0-22.9, adult Other fatigue Essential (primary) hypertension SOB (shortness of breath) Skin neoplasm Skin cancer screening Schwannoma Mass of soft tissue of left upper extremity History of basal cell carcinoma (BCC) Dietary counseling and surveillance (04/09/15) Diarrhea Basal cell carcinoma of upper back Atypical chest pain AK (actinic keratosis) Acute rhinosinusitis Esophageal reflux disease Essential (primary) hypertension Pure hypercholesterolemia <Duyen Inman APRN - Last Filed: 05/17/25 17:32> Surgical History Surgical History: Surgical History Hx of cholecystectomy Previous back surgery <Duyen Inman APRN - Last Filed: 05/17/25 17:32> Family History Family History: Family History Sibling Patient's sister is in good health Heart disease Father Mother Hypertension Other Family history of gastrointestinal disorder <Duyen Inman APRN - Last Filed: 05/17/25 17:32> Social History Social History: Social History Smoking status: Never smoker Second hand tobacco smoke exposure: No Alcohol intake: never Substance use: never Substance use type: does not use Lack of Transportation: No Lack of Food: Never True Current Housing: I Have Housing Concerned About Future Housing: No Difficulty Paying Gas/Electric Bills: No Difficulty Paying for Meds: No Currently Unemployed: No Education: High School Diploma/GED Difficulty w/ Childcare or Family Care: No Living arrangements: with family Occupation/Education: retired Additional occupation/education comments: [employer] Gender identity (if verbalized by the patient): Male Spiritual care concerns: No <Duyen Inman APRN - Last Filed: 05/17/25 17:32> Exam Narrative: GENERAL: No acute distress. HEAD: Normocephalic, atraumatic. EYES: PERRLA and EOMI. ENT: Nares clear, no rhinorrhea or epistaxis. Mucous membranes moist. Oropharynx without tonsillar hypertrophy exudate or other lesions. Bilateral TMs pearly mays non-bulging NECK: Supple. No adenopathy or masses. No carotid bruits or JVD CHEST: Clear to auscultation. No respiratory distress. No wheezes rales or rhonchi HEART: Tachycardic. Regular rhythm. No murmur heard. Normal peripheral pulses. ABDOMEN: Soft, nondistended, normal active bowel sounds. Mild generalized TTP. EXTREMITIES: Normal range of motion. No edema. SKIN: Warm, dry, no rash. NEURO: No focal deficits. Alert and oriented x3. PSYCH: Normal mood and affect <RD Caldwell - Last Filed: 05/18/25 01:54> Course Vital Signs Vital signs: Vital Signs Temperature 97.6 F 05/17/25 14:20 Pulse Rate 91 05/17/25 14:20 Respiratory Rate 18 05/17/25 14:20 Blood Pressure 154/53 H 05/17/25 14:20 Pulse Oximetry 99 05/17/25 14:20 Oxygen Delivery Room Air 05/17/25 14:20 Temperature 98 F 05/17/25 17:03 Pulse Rate 110 H 05/17/25 17:03 Respiratory Rate 16 05/17/25 17:03 Blood Pressure 153/79 H 05/17/25 17:03 Pulse Oximetry 100 05/17/25 17:03 Oxygen Delivery Room Air 05/17/25 14:20 <Duyen Inman, CARTRIDGE ASSEMBLING MACHINE ADJUSTER - Last Filed: 05/17/25 17:32> Vital Signs Temperature 97.6 F 05/17/25 14:20 Pulse Rate 91 05/17/25 14:20 Respiratory Rate 18 05/17/25 14:20 Blood Pressure 154/53 H 05/17/25 14:20 Pulse Oximetry 99 05/17/25 14:20 Oxygen Delivery Room Air 05/17/25 14:20 Temperature 98 F 05/17/25 17:03 Pulse Rate 110 H 05/17/25 17:03 Respiratory Rate 16 05/17/25 17:03 Blood Pressure 153/79 H 05/17/25 17:03 Pulse Oximetry 100 05/17/25 17:03 Oxygen Delivery Room Air 05/17/25 14:20 <RD Caldwell - Last Filed: 05/18/25 01:54> [facility] Narrative Medical decision making narrative: Patient is an 89-year-old male who presents to the ER with abdominal pain. He reports his symptoms started approximately 2 days ago after he drink a Boost. Patient also endorses ?rectal burning and constipation. He reports his last bowel movement was 2 days ago. Patient endorses a history of chronic back pain, BPH, high blood pressure, and IBS. He reports he has experienced some acute back pain over the past couple of days. Denies fevers/chills, chest pain/shortness of breath, hematochezia/melena, nausea/vomiting, or hematemesis Upon my initial assessment patient appears nontoxic with stable vitals although mild tachycardia noted. Administered a small dose of morphine for the patient's pain. Patient reports vast improvement and tachycardia resolved. Patient's abdomen is soft without significant pain or signs of surgical abdomen on serial exams. CT demonstrated no acute abnormalities and notes mild constipation. Labs and EKG without significant high risk changes other than leukocytosis at 14.1. No clear source of infection was identified on evaluation. Patient advised close outpatient follow-up. Enema administered with only mild evacuation. Lab and CT evaluations are reviewed and patient is felt to be a reasonable candidate for outpatient management. Patient was instructed as to limitations of CT and laboratory evaluation and encouraged to follow with PCP for further evaluation. Given reasons to return to the ED. <RD Caldwell - Last Filed: 05/18/25 01:54> Differential Diagnosis Differential Diagnosis: Differential diagnostic considerations for acute abdominal pain include surgical abdominal etiology, ischemic bowel, inflammatory bowel disease, gastritis, PUD, gastroenteritis, cardiac etiology, appendicitis, diverticulitis, bowel obstruction, kidney stone, pyelonephritis, abdominal aortic aneurysm, pancreatitis, constipation, endometriosis. <RD Caldwell - Last Filed: 05/18/25 01:54> Medical Records I have reviewed the following patient records and this information was taken into consideration when formulating the assessment and plan.: previous labs, previous ER visits, previous hospitalizations and previous clinic visits <RD Caldwell - Last Filed: 05/18/25 01:54> Lab Data MDM Lab Attestation statement: I personally reviewed the patient's lab results. <RD Caldwell - Last Filed: 05/18/25 01:54> Result diagrams: 05/17/25 17:51 05/17/25 18:21 <Duyen Inman APRN - Last Filed: 05/17/25 17:32> Labs: Lab Results 05/17/25 05/17/25 05/17/25 Range/Units 17:51 18:21 18:51 WBC 14.1 H (4.5-10.0) K/mm3 RBC 4.13 L (4.6-6.20) M/mm3 Hgb 12.4 L (14.0-18.0) g/dL Hct 37.6 L (42.0-52.0) % MCV 91.0 (80-100) fl MCH 30.0 (26-34) pg MCHC 33.0 (32-36) g/dl RDW 12.8 (11.5-14.5) % Plt Count 291 (150-375) k/mm3 MPV 10.6 H (7.4-10.4) fl Immature Gran % (Auto) 0.3 (0-0.5) % Neut % (Auto) 92.7 H (45.5-73.1) % Lymph % (Auto) 3.1 L (18.3-44.2) % [place] % (Auto) 3.5 (2.6-8.5) % Eos % (Auto) 0.0 (0-4.4) % Baso % (Auto) 0.4 (0.2-1.2) % Lymph # (Auto) 0.44 L (0.9-3.2) K/mm3 [place] # (Auto) 0.5 (0.1-0.6) K/mm3 Eos # (Auto) 0.0 (0-0.3) K/mm3 Baso # (Auto) 0.1 (0.0-0.1) K/mm3 Abs Immat Gran (auto) 0.04 H (0.00-0.031) K/mm3 Absolute Neuts (auto) 13.1 H (1.3-6.7) K/mm3 Absolute Nucleated RBC 0.000 (0.0-0.012) K/mm3 Nucleated RBC % 0.0 (0.0-0.2) % PT 13.6 (11.1-14.7) Seconds INR 1.0 APTT 27.0 (22.3-36.8) Seconds Sodium 141 (137-145) mmol/L Potassium 3.6 (3.4-5.0) mmol/L Chloride 109 H (98-107) mmol/L Carbon Dioxide 24 (22-30) mmol/L Anion Gap 8 (4-12) mmol/L BUN 27 H (9-20) mg/dL Creatinine 0.73 (0.7-1.3) mg/dL Estim Creat Clear Calc 62 ml/min Estimated GFR > 60 (59 - ) Glucose 147 H (65-110) mg/dL Calcium 9.1 (8.4-10.2) mg/dL Total Bilirubin 0.3 (0.2-1.3) mg/dL AST 24 (17-59) U/L ALT 17 (6-50) U/L Alkaline Phosphatase 68 (38-126) U/L Total Protein 6.7 (6.3-8.2) g/dL Albumin 4.0 (3.5-5.1) g/dL Lipase 63 (23-300) U/L Urine Color Yellow (Yellow) Urine Appearance Clear (Clear) Urine pH 5.0 (5.0-9.0) Ur Specific [place] 1.023 (1.001-1.035) Urine Protein Negative (Negative) mg/dL Urine Glucose (UA) Negative (Negative) mg/dL Urine Ketones Negative (Negative) mg/dL Ur Blood (Man) 1+ H (Negative) Urine Nitrate Negative (Negative) Urine Bilirubin Negative (Negative) Urine Urobilinogen 0.2 (<2.0) mg/dL Leukocyte Esterase Rfl Negative (Negative) MILI/UL Urine RBC 11-20 H (0-2) /hpf Urine WBC 0-5 (0-3) /hpf Ur Squamous Epith Cells None seen (Few) /hpf Urine Bacteria None seen /hpf Urine Casts 0-2 <Duyen Inman, CARTRIDGE ASSEMBLING MACHINE ADJUSTER - Last Filed: 05/17/25 17:32> Lab Results 05/17/25 05/17/25 05/17/25 Range/Units 17:51 18:21 18:51 WBC 14.1 H (4.5-10.0) K/mm3 RBC 4.13 L (4.6-6.20) M/mm3 Hgb 12.4 L (14.0-18.0) g/dL Hct 37.6 L (42.0-52.0) % MCV 91.0 (80-100) fl MCH 30.0 (26-34) pg MCHC 33.0 (32-36) g/dl RDW 12.8 (11.5-14.5) % Plt Count 291 (150-375) k/mm3 MPV 10.6 H (7.4-10.4) fl Immature Gran % (Auto) 0.3 (0-0.5) % Neut % (Auto) 92.7 H (45.5-73.1) % Lymph % (Auto) 3.1 L (18.3-44.2) % [place] % (Auto) 3.5 (2.6-8.5) % Eos % (Auto) 0.0 (0-4.4) % Baso % (Auto) 0.4 (0.2-1.2) % Lymph # (Auto) 0.44 L (0.9-3.2) K/mm3 [place] # (Auto) 0.5 (0.1-0.6) K/mm3 Eos # (Auto) 0.0 (0-0.3) K/mm3 Baso # (Auto) 0.1 (0.0-0.1) K/mm3 Abs Immat Gran (auto) 0.04 H (0.00-0.031) K/mm3 Absolute Neuts (auto) 13.1 H (1.3-6.7) K/mm3 Absolute Nucleated RBC 0.000 (0.0-0.012) K/mm3 Nucleated RBC % 0.0 (0.0-0.2) % PT 13.6 (11.1-14.7) Seconds INR 1.0 APTT 27.0 (22.3-36.8) Seconds Sodium 141 (137-145) mmol/L Potassium 3.6 (3.4-5.0) mmol/L Chloride 109 H (98-107) mmol/L Carbon Dioxide 24 (22-30) mmol/L Anion Gap 8 (4-12) mmol/L BUN 27 H (9-20) mg/dL Creatinine 0.73 (0.7-1.3) mg/dL Estim Creat Clear Calc 62 ml/min Estimated GFR > 60 (59 - ) Glucose 147 H (65-110) mg/dL Calcium 9.1 (8.4-10.2) mg/dL Total Bilirubin 0.3 (0.2-1.3) mg/dL AST 24 (17-59) U/L ALT 17 (6-50) U/L Alkaline Phosphatase 68 (38-126) U/L Total Protein 6.7 (6.3-8.2) g/dL Albumin 4.0 (3.5-5.1) g/dL Lipase 63 (23-300) U/L Urine Color Yellow (Yellow) Urine Appearance Clear (Clear) Urine pH 5.0 (5.0-9.0) Ur Specific [place] 1.023 (1.001-1.035) Urine Protein Negative (Negative) mg/dL Urine Glucose (UA) Negative (Negative) mg/dL Urine Ketones Negative (Negative) mg/dL Ur Blood (Man) 1+ H (Negative) Urine Nitrate Negative (Negative) Urine Bilirubin Negative (Negative) Urine Urobilinogen 0.2 (<2.0) mg/dL Leukocyte Esterase Rfl Negative (Negative) MILI/UL Urine RBC 11-20 H (0-2) /hpf Urine WBC 0-5 (0-3) /hpf Ur Squamous Epith Cells None seen (Few) /hpf Urine Bacteria None seen /hpf Urine Casts 0-2 <RD Caldwell - Last Filed: 05/18/25 01:54> Imaging Data Attestation: I personally reviewed and interpreted this imaging study as follows: <RD Caldwell - Last Filed: 05/18/25 01:54> Radiologist's impression: ITS Impressions Abdomen/Pelvis CT 05/17/25 19:39 IMPRESSION: No acute abnormality is noted in the abdomen and pelvis. Colonic diverticulosis without evidence of acute diverticulitis. Mild constipation. All CT scans at this facility are performed using low dose modulation techniques as appropriate to perform exam including the following: automated exposure control; use of iterative reconstruction technique; adjustment of the mA and/or kV according to patient size (this includes techniques or standardized protocols for targeted exams where dose is matched to indication/reason for exam). <Duyen Inman APRN - Last Filed: 05/17/25 17:32> ITS Impressions Abdomen/Pelvis CT 05/17/25 19:39 IMPRESSION: No acute abnormality is noted in the abdomen and pelvis. Colonic diverticulosis without evidence of acute diverticulitis. Mild constipation. All CT scans at this facility are performed using low dose modulation techniques as appropriate to perform exam including the following: automated exposure control; use of iterative reconstruction technique; adjustment of the mA and/or kV according to patient size (this includes techniques or standardized protocols for targeted exams where dose is matched to indication/reason for exam). <RD Caldwell - Last Filed: 05/18/25 01:54> ECG Data EKG #1: ECG completion date: 05/17/25 <RD Caldwell - Last Filed: 05/18/25 01:54> ECG completion time: 17:51 <RD Caldwell - Last Filed: 05/18/25 01:54> normal rate, sinus rhythm and no acute changes <RD Caldwell - Last Filed: 05/18/25 01:54> Discharge Plan Discharge Clinical Impression: Abdominal pain, Constipation, IBS (irritable bowel syndrome) <Duyen Inman APRN - Last Filed: 05/17/25 17:32> Patient Disposition: Home <Duyen Inman APRN - Last Filed: 05/17/25 17:32> Condition: Stable <Duyen Inman APRN - Last Filed: 05/17/25 17:32> Instructions: Irritable Bowel Syndrome (ED), Constipation (ED), Abdominal Pain (ED) <Duyen Inman APRN - Last Filed: 05/17/25 17:32> Additional Instructions: Return to the emergency department if you experience fever, abdominal pain with nausea and vomiting, you are unable to have a bowel movement, blood in the stool, or any other symptoms that are concerning to you. Increase water intake. Look into the Low-FODMAP Diet for IBS. Take medications as prescribed. Follow up closely with your primary care doctor especially if symptoms persist. <Duyen Inman APRN - Last Filed: 05/17/25 17:32> Patient Language: Nigerien <Duyen Inman APRN - Last Filed: 05/17/25 17:32> Prescriptions: New dicyclomine 10 mg capsule 10 mg PO TID Qty: 20 0RF No Action ciprofloxacin HCl 500 mg tablet valacyclovir [Valtrex] 1 gram tablet 1,000 mg PO TID Qty: 30 0RF fluticasone propionate [Flonase Allergy Relief] 50 mcg/actuation spray,suspension 2 spray intranasal BID Qty: 16 3RF Rx Instructions: administer into each nostril. Aim back/up/out ramipril [Altace] 10 mg capsule 10 mg PO DAILY Qty: 90 3RF tamsulosin [Flomax] 0.4 mg capsule 0.4 mg PO DAILY Qty: 90 2RF diltiazem HCl [Cartia XT] 240 mg capsule,extended release 24hr 240 mg PO DAILY Qty: 90 2RF <Duyen Inman APRN - Last Filed: 05/17/25 17:32> Follow-up/Referrals: Saw Bah DO [Primary Care Provider, Internal Medicine] <Duyen Inman APRN - Last Filed: 05/17/25 17:32>
--- NOTE | 2025-05-17 17:31 | ECG_ITS ---
Test Date: 2025-05-17 17:51:22 Measurements Intervals [place] Rate: 98 P: 66 AL: 143 QRS: 71 QRSD: 96 T: 69 QT: 374 QTc: 478 Interpretive Statements SINUS RHYTHM POSSIBLE LEFT ATRIAL ENLARGEMENT MINIMAL Q WAVES- INFERIOR LEADS BASELINE ARTIFACT- I, III, AVR, AVL, AVF BORDERLINE ECG Compared to ECG 02/22/2025 18:50:44 Sinus arrhythmia no longer present Electronically Signed On 05-17-2025 18:24:30 GLOBAL PROJECT MANAGER by Tod Singh D.O.
[2025-05-17 17:58] LABS: Hematocrit 37.6 % (42.0-52.0); Hemoglobin 12.4 g/dL (14.0-18.0); Immature Granulocyte Percent A 0.3 % (0-0.5); Lymphocytes Absolute Auto 0.44 K/mm3 (0.9-3.2); Mean Corpuscular HGB Conc 33.0 g/dl (32-36); Mean Corpuscular Hemoglobin 30.0 pg (26-34); Mean Corpuscular Volume 91.0 fl (80-100); Nucleated Red Blood Cells Absolute Auto 0.000 K/mm3 (0.0-0.012); Nucleated Red Blood Cells Perc 0.0 % (0.0-0.2); Platelet Count Result 291 k/mm3 (150-375); Red Blood Count 4.13 M/mm3 (4.6-6.20); White Blood Count 14.1 K/mm3 (4.5-10.0)
[2025-05-17 18:08] LABS: INR 1.0; Prothrombin Time 13.6 Seconds (11.1-14.7)
[2025-05-17 18:09] LABS: Partial Thromboplastin Time 27.0 Seconds (22.3-36.8)
[2025-05-17] MEDS: MORPHINE SULFATE (*CRX) 4 MG/ML INJ 2 MG IV PUSH (18:39)
[2025-05-17 18:41] LABS: Alanine Aminotransferase 17 U/L (6-50); Albumin Level 4.0 g/dL (3.5-5.1); Alkaline Phosphatase 68 U/L (38-126); Anion Gap 8 mmol/L (4-12); Aspartate Amino Transferase 24 U/L (17-59); Bilirubin,Total 0.3 mg/dL (0.2-1.3); Blood Urea Nitrogen 27 mg/dL (9-20); Calcium 9.1 mg/dL (8.4-10.2); Carbon Dioxide 24 mmol/L (22-30); Chloride 109 mmol/L (98-107); Estimated CRCL calculation 62 ml/min; Estimated Glomerular Filt Rate > 60; Glucose 147 mg/dL (65-110); Lipase 63 U/L (23-300); Potassium 3.6 mmol/L (3.4-5.0); Sodium 141 mmol/L (137-145); Total Protein 6.7 g/dL (6.3-8.2)
--- OUTSIDE RECORDS SUMMARY | 2025-05-17 19:04 | XMS_ITS | Clinical Summary ---
Author Organization [facility] Address [address] [place] [id number] Care Team Providers Care Assembler Billiard Table Name Role Phone Unavailable Primary Care Provider [...]
[2025-05-17 19:07] LABS: Add Urine Microscopic? YES; Appearance Urine Clear (Clear); Glucose Urine UA Negative (Negative); Leukocyte Esterase Ur Negative LEU/UL (Negative); Nitrate Urine Negative (Negative); Non Pathogenic Casts 0-2; Specific Grav Ur 1.023 (1.001-1.035)
== END 2025-05-17 21:48 | disposition home or self-care (01) ==
PROVIDERS: Registered Nurse; PCP Internal Medicine
DX: K58.1 Irritable bowel syndrome with constipation (principal); R10.9 Unspecified abdominal pain; I10 Essential (primary) hypertension; E78.00 Pure hypercholesterolemia, unspecified; N40.0 Benign prostatic hyperplasia without lower urinary tract symptoms; K21.9 Gastro-esophageal reflux disease without esophagitis; Z85.828 Personal history of other malignant neoplasm of skin; Z90.49 Acquired absence of other specified parts of digestive tract; Z79.899 Other long term (current) drug therapy; K57.90 Diverticulosis of intestine, part unspecified, without perforation or abscess without bleeding; R94.31 Abnormal electrocardiogram [ECG] [EKG]
CPT/HCPCS: 36415; 74177; 80053; 81001; 83690; 85025; 85610; 85730; 93005; 96374; 99284; J2270; Q9967